=== PATIENT | male | born 1985 | race Caucasian/White ===

== ENCOUNTER 2016-12-23 | Outpatient (CLI) | payer BC, OTHER | END 2016-12-23 16:17 | disposition critical access hospital (66) | CPT/HCPCS: A0425; A0427 ==

== ENCOUNTER 2016-12-23 16:44 | Inpatient (IN) | payer OTHER, BC ==
[2016-12-23] MEDS ORDERED: ROCURONIUM 50 MG/5 ML VIAL IVP STA (16:52)
[2016-12-23] MEDS ORDERED: ROCURONIUM 50 MG/5 ML VIAL IVP ONE (16:54)
[2016-12-23] MEDS ORDERED: PROPOFOL 1000 MG/100 ML 100 ML IV STA (17:04)
[2016-12-23] MEDS ORDERED: PROPOFOL 1000 MG/100 ML 100 ML IV ONE (17:06)
[2016-12-23] MEDS ORDERED: SODIUM CHLORIDE 0.9% 1,000 ML IV ONE ×2 (17:06)
[2016-12-23] MEDS ORDERED: ETOMIDATE 40 MG/20 ML VIAL IVP STA (17:12)
[2016-12-23] MEDS ORDERED: HYDROmorphone 1 MG/ML SYRINGE ONE (17:31)
[2016-12-23] MEDS ORDERED: SODIUM CHLORIDE FLUSH 0.9% 10 ML SYRINGE IVP PRN (17:35)
[2016-12-23] MEDS: PROPOFOL 1000 MG/100 ML 100 ML IV SCH ×2 (17:36→21:14)
[2016-12-23] MEDS ORDERED: HYDROmorphone 1 MG/ML SYRINGE IVP STA (17:39)
[2016-12-23] MEDS ORDERED: ALBUTEROL NEB 2.5 MG/3 ML INH PRN (17:43)
[2016-12-23] MEDS: NS W/20 MEQ KCL 1,000 ML IV SCH (19:00)
[2016-12-23] MEDS ORDERED: TRACE ELEMENTS V CONC 1 ML VIAL IV SCH (19:00)
[2016-12-23] MEDS: CHLORHEXIDINE GLUCONATE 15 ML UDC PO SCH (20:41)
[2016-12-23] MEDS ORDERED: POTASSIUM PHOSPHATE 15 MMOL in SODIUM CHLORIDE 0.9% 250 ML IV ONE (21:17)
[2016-12-23] MEDS ORDERED: CALCIUM GLUCONATE 1,000 MG in SODIUM CHLORIDE 0.9% 50 ML IV ONE (21:17)
[2016-12-23] MEDS ORDERED: SODIUM CHLORIDE 0.9% 50 ML IV ONE (21:54)
[2016-12-23] MEDS ORDERED: SODIUM CHLORIDE 0.9% 250 ML IV ONE (21:54)
[2016-12-23] MEDS: POTASSIUM CHLOR 10 MEQ/100 ML 100 ML IV SCH ×2 (22:36→23:32)
[2016-12-23] MEDS: SODIUM CHLORIDE FLUSH 0.9% 10 ML SYRINGE IVP SCH (22:52)
[2016-12-24] MEDS: PROPOFOL 1000 MG/100 ML 100 ML IV SCH ×3 (00:13→06:41)
[2016-12-24] MEDS: POTASSIUM CHLOR 10 MEQ/100 ML 100 ML IV SCH ×2 (00:37→01:49)
[2016-12-24] MEDS: SODIUM CHLORIDE FLUSH 0.9% 10 ML SYRINGE IVP SCH ×3 (06:12→21:36)
[2016-12-24] MEDS: PANTOPRAZOLE 40 MG VIAL IVP SCH (06:12)
[2016-12-24] MEDS: NS W/20 MEQ KCL 1,000 ML IV SCH ×2 (06:44→16:11)
[2016-12-24] MEDS: ENOXAPARIN 40 MG/0.4 ML SYRINGE SUBQ SCH (08:25)
[2016-12-24] MEDS: CHLORHEXIDINE GLUCONATE 15 ML UDC PO SCH ×2 (08:26→21:26)
[2016-12-24] MEDS: KETOROLAC 15 MG/ML VIAL IVP PRN ×2 (09:17→20:21)
[2016-12-24] MEDS: ACETAMINOPHEN 1,000 MG/100 ML 100 ML IV SCH ×3 (09:44→21:45)
[2016-12-24] MEDS: ONDANSETRON 4 MG/2 ML VIAL IVP PRN ×3 (09:50→20:11)
[2016-12-24] MEDS: HYDROmorphone 1 MG/ML SYRINGE IVP PRN ×3 (10:14→21:36)
[2016-12-24] MEDS ORDERED: tiZANidine 4 MG TABLET PO PRN (10:16)
[2016-12-24] MEDS: OXcarbazepine 150 MG TABLET PO SCH ×2 (10:27→21:35)
[2016-12-24] MEDS: PREGABALIN 25 MG CAPSULE PO SCH ×4 (10:27→21:35)
[2016-12-24] MEDS: DRONABINOL 2.5 MG CAPSULE PO SCH ×4 (10:52→21:35)
[2016-12-24] MEDS ORDERED: HYDROmorphone 1 MG/ML SYRINGE IVP SCH (11:00)
[2016-12-24] MEDS: PROMETHAZINE INJ 12.5 MG in SODIUM CHLORIDE 0.9% 50 ML IV PRN ×2 (16:58→23:27)
[2016-12-24] MEDS ORDERED: POLYETHYLENE GLYCOL 3350 17 GM PACKET PO SCH (17:00)
[2016-12-24] MEDS: DOCUSATE SODIUM 100 MG CAPSULE PO SCH (17:52)
[2016-12-24] MEDS: SENNA 8.6 MG TABLET PO SCH (17:52)
[2016-12-24] MEDS: CYANOCOBALAMIN 500 MCG TABLET PO SCH (17:53)
[2016-12-24] MEDS: FOLIC ACID 1 MG TABLET PO SCH (17:53)
[2016-12-24] MEDS: tiZANidine 4 MG TABLET PO SCH (18:42)
[2016-12-24] MEDS ORDERED: tiZANidine 4 MG TABLET PO SCH (21:00)
[2016-12-25] MEDS: PREGABALIN 25 MG CAPSULE PO SCH ×4 (01:27→08:35)
[2016-12-25] MEDS: NS W/20 MEQ KCL 1,000 ML IV SCH (02:40)
[2016-12-25] MEDS: HYDROmorphone 1 MG/ML SYRINGE IVP PRN ×2 (04:05→08:12)
[2016-12-25] MEDS: ACETAMINOPHEN 1,000 MG/100 ML 100 ML IV SCH ×2 (04:05→09:57)
[2016-12-25] MEDS: PANTOPRAZOLE 40 MG VIAL IVP SCH (06:38)
[2016-12-25] MEDS: SODIUM CHLORIDE FLUSH 0.9% 10 ML SYRINGE IVP SCH (06:38)
[2016-12-25] MEDS: POTASSIUM CHLOR 10 MEQ/100 ML 100 ML IV SCH ×3 (06:38→09:52)
[2016-12-25] MEDS: KETOROLAC 15 MG/ML VIAL IVP PRN (07:35)
[2016-12-25] MEDS: ONDANSETRON 4 MG/2 ML VIAL IVP PRN (07:35)
[2016-12-25] MEDS: DOCUSATE SODIUM 100 MG CAPSULE PO SCH ×2 (08:13→09:26)
[2016-12-25] MEDS: ENOXAPARIN 40 MG/0.4 ML SYRINGE SUBQ SCH (08:13)
[2016-12-25] MEDS: SENNA 8.6 MG TABLET PO SCH ×2 (08:13→09:30)
[2016-12-25] MEDS: DRONABINOL 2.5 MG CAPSULE PO SCH (08:15)
[2016-12-25] MEDS: FOLIC ACID 1 MG TABLET PO SCH ×2 (08:15→09:26)
[2016-12-25] MEDS: OXcarbazepine 150 MG TABLET PO SCH (08:17)
[2016-12-25] MEDS: CYANOCOBALAMIN 500 MCG TABLET PO SCH ×2 (08:17→09:26)
[2016-12-25] MEDS: CHLORHEXIDINE GLUCONATE 15 ML UDC PO SCH (08:17)
[2016-12-25] MEDS: tiZANidine 4 MG TABLET PO SCH (08:17)
[2016-12-25] MEDS ORDERED: PHOSPHATIDYL SERINE PO SCH (09:00)
[2016-12-25] MEDS ORDERED: FOLIC ACID 1 MG TABLET PO SCH (09:00)
[2016-12-25] MEDS ORDERED: SACCHAROMYCES BOULARDII 250 MG CAPSULE PO SCH (09:00)
[2016-12-25] MEDS ORDERED: CYANOCOBALAMIN 500 MCG TABLET PO SCH (09:00)
[2016-12-25] MEDS ORDERED: PAPAYA ENZYME PO SCH (09:00)
[2016-12-25] MEDS ORDERED: CHOLECALCIFEROL 1,000 UNIT TABLET PO SCH (09:00)
[2016-12-25] MEDS ORDERED: CRANBERRY 500 MG PO SCH (09:00)
[2016-12-25] MEDS ORDERED: tiZANidine 4 MG TABLET PO SCH (15:00)
== END 2016-12-25 11:18 | disposition home or self-care (01) | DRG 917 ==
PROC: 5A1935Z Respiratory Ventilation, Less than 24 Consecutive Hours (ICD-10-PCS; principal; 2016-12-23)
DX: T42.4X1A Poisoning by benzodiazepines, accidental (unintentional), initial encounter (principal); G92 Toxic encephalopathy; J96.00 Acute respiratory failure, unspecified whether with hypoxia or hypercapnia; J93.9 Pneumothorax, unspecified; Z94.84 Stem cells transplant status; G72.89 Other specified myopathies; F32.9 Major depressive disorder, single episode, unspecified; T40.2X1A Poisoning by other opioids, accidental (unintentional), initial encounter; Y92.009 Unspecified place in unspecified non-institutional (private) residence as the place of occurrence of the external cause; L89.41 Pressure ulcer of contiguous site of back, buttock and hip, stage 1; F41.9 Anxiety disorder, unspecified; K59.00 Constipation, unspecified; R33.9 Retention of urine, unspecified; Z99.3 Dependence on wheelchair

== ENCOUNTER 2017-12-12 14:55 | Outpatient (CLI) | payer OTHER ==
--- NOTE | 2017-12-12 18:41 | XRAY Report ---
TWO VIEW CHEST: 12/12/2017 CLINICAL INDICATION: Pain. FINDINGS: Frontal and lateral views of the chest demonstrate a normal cardiac silhouette. The lungs are clear. No effusion or pneumothorax is present. Spinal stimulator hardware appears stable from 12/25/2016. IMPRESSION: NO EVIDENCE OF ACUTE CARDIOPULMONARY DISEASE. TD: 12/12/2017 18:40
== END 2017-12-12 14:56 | disposition home or self-care (01) ==
LOC: DI.S 14:55
PROVIDERS: ATTEND Physician Assistant
DX: R52 Pain, unspecified (principal); M94.0 Chondrocostal junction syndrome [Tietze]
CPT/HCPCS: 71046

== ENCOUNTER 2017-12-25 19:07 | Outpatient (CLI) | payer OTHER ==
[2017-12-25] MEDS ORDERED: IOPAMIDOL-300 100 ML VIAL ONE (19:35)
[2017-12-25] MEDS ORDERED: IOPAMIDOL-300 100 ML VIAL IVP ONE (19:56)
--- NOTE | 2017-12-26 15:25 | CT Report ---
EXAM: CT MAXILLOFACIAL WITH CONTRAST EXAM DATE: 12/25/2017 08:01 PM. CLINICAL HISTORY: CHRONIC NONINTRACTABLE HEADACHE. COMPARISONS: None. TECHNIQUE: Thin-section axial images were acquired of the face after administration of intravenous co ntrast. Post-processing: Coronal and sagittal reformats. Other: None. IV contrast: 80 cc Isovue 300. In accordance with CT protocol optimization, one or more of the following dose reduction techniques w ere utilized for this exam: automated exposure control, adjustment of mA and/or KV based on patient s ize, or use of iterative reconstructive technique. FINDINGS: Orbits:Symmetric and unremarkable. Soft Tissue: No abnormal inflammation or fluid collection. No soft tissue mass. The infratemporal fos sa and parapharyngeal spaces are unremarkable. Bones: No fracture or bone lesion. Temporomandibular Joints: The temporomandibular joints are symmetric and normally located. Sinuses: No mucosal thickening or fluid levels. Glands: The parotid and submandibular glands are unremarkable in their included portions.. Other: C1-C2 alignment anatomic. Neurostimulator seen in the cervical spinal canal. No abnormal postc ontrast enhancement. Nasopharyngeal soft tissues not enlarged. IMPRESSION: Negative maxillofacial CT with cervical spinal canal neurostimulator in place. [facility] Referring Provider Line: [phone] SITE ID: [id number]
== END 2017-12-25 19:08 | disposition home or self-care (01) ==
LOC: DI 19:07
PROVIDERS: ATTEND Internal Medicine
DX: R51 Headache (principal)
CPT/HCPCS: 70487; Q9967; 70486

== ENCOUNTER 2018-03-13 11:53 | Emergency (ER) | payer OTHER ==
--- NOTE | 2018-03-13 12:21 | ED Physician Documentation ---
PD HPI MALE - Stated complaint Stated Complaint: MALE - Chief complaint Chief Complaint: General - History obtained from History obtained from: Patient - History of Present Illness Timing - onset: How many days ago (few days of worsening rectal pain and tenderness.) Timing - details: Gradual onset Associated symptoms: Other (rectal pain) Similar symptoms before: Has not had sx before Recently seen: Not recently seen Review of Systems Constitutional: denies: Fever, Chills GI: denies: Abdominal Pain, Nausea, Vomiting, Constipation, Diarrhea Skin: denies: Laceration (s) PD PAST MEDICAL HISTORY - Past Medical History Cardiovascular: None Respiratory: None Neuro: Tremors, Other Endocrine/Autoimmune: None GI: GERD, Other : Incontinence HEENT: None Psych: None Musculoskeletal: Other Derm: None - Past Surgical History Past Surgical History: Yes Ortho: Arthroscopic surgery - Present Medications Home Medications: Ambulatory Orders Medication Instructions Recorded Confirmed Cholecalciferol (Vitamin D3) 5,000 units PO DAILY 04/03/14 12/24/16 [Vitamin D3] OXcarbazepine [Trileptal] 300 mg PO BID 04/03/14 12/24/16 Ondansetron [Zofran Odt] 4 - 8 mg PO .BID-QID 04/03/14 12/24/16 Pregabalin [Lyrica] 75 mg PO Q4HR 04/03/14 12/24/16 Tizanidine HCl [Zanaflex] 4 mg PO DAILY 04/03/14 12/24/16 Cranberry 500 mg PO DAILY 09/15/15 12/24/16 Docusate Sodium 100Mg Capsule 200 mg PO DAILY 09/15/15 12/24/16 [Colace 100Mg Capsule] Dronabinol [Marinol] 5 mg PO QID 09/15/15 12/24/16 Naltrexone HCl 4.5 mg PO DAILY 09/15/15 12/24/16 Senna [Senokot] 8.6 mg PO DAILY 09/15/15 12/24/16 Cyanocobalamin (Vitamin B-12) 1,000 mcg PO DAILY 12/24/16 12/24/16 [Vitamin B-12] Folic Acid 0.8 mg PO DAILY 12/24/16 12/24/16 Papaya [Papaya Enzyme] 1 tab PO DAILY 12/24/16 12/24/16 Phosphatidyl Serine 100 mg PO DAILY 12/24/16 12/24/16 [Phosphatidylserine] Polyethylene Glycol 3350 [Miralax] 17 gm PO .Q1-2DAYS 12/24/16 12/24/16 Saccharomyces Boulardii [Florastor] 250 mg PO DAILY 12/24/16 12/24/16 Tizanidine HCl [Zanaflex] 4 mg PO DAILY@1500 12/24/16 12/24/16 Tizanidine HCl [Zanaflex] 6 mg PO QPM 12/24/16 12/24/16 Hydrocortisone Acetate [Anucort-Hc] 25 mg RC DAILY #5 supp.rect 03/13/18 - Allergies Allergies/Adverse Reactions: Allergies Allergy/AdvReac Type Severity Reaction Status Date / Time ampicillin AdvReac Unknown Verified 12/23/16 16:48 ciprofloxacin [From Cipro] AdvReac Unknown Verified 12/23/16 16:48 - Social History Does the pt smoke?: No Smoking Status: Never smoker Does the pt drink ETOH?: No Does the pt have substance abuse?: No - Immunizations Immunizations are current?: Yes - POLST Patient has POLST: Yes PD ED PE NORMAL - Vitals Vital signs reviewed: Yes - General General: Alert and oriented X 3, No acute distress, Well developed/nourished - Abdomen Abdomen: Soft, Non tender - Rectal Rectal: Other (external hemorrhoid with thrombosis and marked tenderness. No surrounding signs of infection. ) - Back Back: No CVA TTP - Derm Derm: Normal color, Warm and dry Results - Vitals Vitals: Vital Signs - 24 hr 03/13/18 03/13/18 11:59 13:40 Temperature 36.9 C Heart Rate 90 74 Respiratory 16 16 Rate Blood Pressure 109/65 117/60 O2 Saturation 96 96 Oxygen O2 Source Room air Procedures - General procedure General procedure: Thrombosed hemorrhoid - cleansed with NS, local anesth with lido 1% with epi, then used #11 scalpel to open the hemorrhoid and extract clot, until the hemorrhoid decompressed. Patient tolerated okay. PD MEDICAL DECISION MAKING - ED course Complexity details: considered differential, d/w patient Departure - Departure Disposition: 01 Home, Self Care Clinical Impression: Thrombosed external hemorrhoid Condition: Stable Record reviewed to determine appropriate education?: Yes Instructions: ED Hemorrhoids Follow-Up: KE ESPOSITO [Primary Care Provider] - Prescriptions: Hydrocortisone Acetate [Anucort-Hc] 25 mg RC DAILY #5 supp.rect Comments: Cleanse the area which is soap and water time or 2 a day. Normal bathing is okay. Use the steroid suppository daily for 5 more days for the hemorrhoid part. The thrombosed portion is improved. Recheck if not better over the next several days. Discharge Date/Time: 03/13/18 13:40
[2018-03-13] MEDS ORDERED: KETOROLAC 30 MG/ML VIAL IM STA (12:34)
[2018-03-13] MEDS ORDERED: LIDOCAINE MPF 1%-EPI 1:200000 30 ML VIAL SUBQ STA (12:44)
[2018-03-13] MEDS ORDERED: HYDROCORTISONE 25 MG SUPPOSITORY PR STA (13:04)
[2018-03-13 13:42] VITALS: BP 117/60
== END 2018-03-13 13:40 | disposition home or self-care (01) ==
LOC: ED 11:53
DX: K64.5 Perianal venous thrombosis (principal); R25.1 Tremor, unspecified; K21.9 Gastro-esophageal reflux disease without esophagitis
CPT/HCPCS: 96372; 99283; J3490

== ENCOUNTER 2018-04-25 03:48 | Emergency (ER) | payer OTHER ==
--- NOTE | 2018-04-25 04:09 | ED Physician Documentation ---
PD HPI MHE - Stated complaint Stated Complaint: SI - Chief complaint Chief Complaint: MHE - History obtained from History obtained from: Patient - History of Present Illness Primary symptom: Suicidal ideation Timing - onset: Today Pain level now: 0 Contributing factors: Family, Other (underlying illness causing him to be confined to wheelchair) Recently seen: Not recently seen - Additional information Additional information: patient has CIDP (chronic inflammatory demyelating polyneuropathy), and is thus confined to wheelchair. he recently went through divorce, and tonight, he says his parent made hurtful comments to him. he thus left the parents house (he is temporarily staying there while work is being done on his condominium), and subsequently called a friend and expressed thoughts of killing himself. friend then called police who located patient and brought him to ED. Patient strongly denies intent to self-harm on my HPI/ROS. He readily admits to being depressed, but says he has no intention of killing himself or hurting others. he also says the parent already contacted him and apologized, and he feels he can go back to parents home and feels safe doing so. Review of Systems Constitutional: denies: Fever Throat: reports: Sore throat Cardiac: reports: Reviewed and negative Respiratory: reports: Reviewed and negative GI: reports: Reviewed and negative Neurologic: reports: Focal weakness (BLE due to underlying illness). denies: Confused, Altered mental status, Headache Psychiatric: reports: Depressed. denies: Suicidal (despite suicidal statements to friend earlier tonight, denies true intent), Homicidal PD PAST MEDICAL HISTORY - Past Medical History Cardiovascular: None Respiratory: None Endocrine/Autoimmune: None GI: GERD, Other : Incontinence HEENT: None Psych: None Musculoskeletal: Other Derm: None - Past Surgical History Past Surgical History: Yes Ortho: Arthroscopic surgery - Present Medications Home Medications: Ambulatory Orders Medication Instructions Recorded Confirmed Cholecalciferol (Vitamin D3) 5,000 units PO DAILY 04/03/14 12/24/16 [Vitamin D3] OXcarbazepine [Trileptal] 300 mg PO BID 04/03/14 12/24/16 Ondansetron [Zofran Odt] 4 - 8 mg PO .BID-QID 04/03/14 12/24/16 Pregabalin [Lyrica] 75 mg PO Q4HR 04/03/14 12/24/16 Tizanidine HCl [Zanaflex] 4 mg PO DAILY 04/03/14 12/24/16 Cranberry 500 mg PO DAILY 09/15/15 12/24/16 Docusate Sodium 100Mg Capsule 200 mg PO DAILY 09/15/15 12/24/16 [Colace 100Mg Capsule] Dronabinol [Marinol] 5 mg PO QID 09/15/15 12/24/16 Naltrexone HCl 4.5 mg PO DAILY 09/15/15 12/24/16 Senna [Senokot] 8.6 mg PO DAILY 09/15/15 12/24/16 Cyanocobalamin (Vitamin B-12) 1,000 mcg PO DAILY 12/24/16 12/24/16 [Vitamin B-12] Folic Acid 0.8 mg PO DAILY 12/24/16 12/24/16 Papaya [Papaya Enzyme] 1 tab PO DAILY 12/24/16 12/24/16 Phosphatidyl Serine 100 mg PO DAILY 12/24/16 12/24/16 [Phosphatidylserine] Polyethylene Glycol 3350 [Miralax] 17 gm PO .Q1-2DAYS 12/24/16 12/24/16 Saccharomyces Boulardii [Florastor] 250 mg PO DAILY 12/24/16 12/24/16 Tizanidine HCl [Zanaflex] 4 mg PO DAILY@1500 12/24/16 12/24/16 Tizanidine HCl [Zanaflex] 6 mg PO QPM 12/24/16 12/24/16 Hydrocortisone Acetate [Anucort-Hc] 25 mg RC DAILY #5 supp.rect 03/13/18 - Allergies Allergies/Adverse Reactions: Allergies Allergy/AdvReac Type Severity Reaction Status Date / Time ampicillin AdvReac Unknown Verified 04/25/18 04:02 ciprofloxacin [From Cipro] AdvReac Unknown Verified 04/25/18 04:02 - Social History Does the pt smoke?: No Smoking Status: Never smoker Does the pt drink ETOH?: No Does the pt have substance abuse?: No - Immunizations Immunizations are current?: Yes - POLST Patient has POLST: Yes PD ED PE NORMAL - Vitals Vital signs reviewed: Yes - General General: Alert and oriented X 3, No acute distress, Well developed/nourished, Other (returning from bathroom when I walk in room; he is goodwin and adept at transferring self from wheelchair to bed without assistancen he does this using his body and arms (has to move his legs by maneuvering them with his arms and hands)) - Cardiac Cardiac: RRR, No murmur - Respiratory Respiratory: No respiratory distress, Clear bilaterally Results - Vitals Vitals: Oxygen O2 Source Room air - Labs Labs: Microbiology 04/25/18 05:26 Group A Strep Throat Culture - Final Throat Beta Hemolytic Strep Group A Laboratory Tests 04/25/18 04/25/18 04/25/18 04:52 04:52 04:59 WBC 7.0 RBC 5.29 Hgb 16.5 Hct 49.1 MCV 92.9 MCH 31.2 H MCHC 33.6 RDW 14.2 Plt Count 238 MPV 8.6 Neut # (Auto) 5.2 Lymph # (Auto) 1.1 L Barren # (Auto) 0.6 Eos # (Auto) 0.1 Baso # (Auto) 0.1 Absolute Nucleated RBC 0.01 Nucleated RBC % 0.1 Sodium 138 Potassium 3.8 Chloride 101 Carbon Dioxide 28 Anion Gap 9.0 BUN 8 Creatinine 0.6 Estimated GFR (MDRD) 154 Glucose 83 Calcium 9.5 Total Bilirubin 0.5 AST 16 ALT 16 Alkaline Phosphatase 49 Total Protein 8.0 Albumin 4.2 Globulin 3.8 Albumin/Globulin Ratio 1.1 Lipase 37 Urine Color YELLOW Urine Clarity CLEAR Urine pH 6.0 Ur Specific [place] 1.025 Urine Protein NEGATIVE Urine Glucose (UA) NEGATIVE Urine Ketones NEGATIVE Urine Occult Blood NEGATIVE Urine Nitrite NEGATIVE Urine Bilirubin NEGATIVE Urine Urobilinogen 0.2 (NORMAL) Ur Leukocyte Esterase NEGATIVE Ur Microscopic Review NOT INDICATED Urine Culture Comments NOT INDICATED Urine Opiates Screen Ur Oxycodone Screen Urine Methadone Screen Ur Propoxyphene Screen Ur Barbiturates Screen Ur Tricyclics Screen Ur Phencyclidine Scrn Ur Amphetamine Screen U Methamphetamines Scrn U Benzodiazepines Scrn Urine Cocaine Screen U Cannabinoids Screen Group A Strep Rapid 04/25/18 04/25/18 04:59 05:26 WBC RBC Hgb Hct MCV MCH MCHC RDW Plt Count MPV Neut # (Auto) Lymph # (Auto) Barren # (Auto) Eos # (Auto) Baso # (Auto) Absolute Nucleated RBC Nucleated RBC % Sodium Potassium Chloride Carbon Dioxide Anion Gap BUN Creatinine Estimated GFR (MDRD) Glucose Calcium Total Bilirubin AST ALT Alkaline Phosphatase Total Protein Albumin Globulin Albumin/Globulin Ratio Lipase Urine Color Urine Clarity Urine pH Ur Specific [place] Urine Protein Urine Glucose (UA) Urine Ketones Urine Occult Blood Urine Nitrite Urine Bilirubin Urine Urobilinogen Ur Leukocyte Esterase Ur Microscopic Review Urine Culture Comments Urine Opiates Screen NEGATIVE Ur Oxycodone Screen NEGATIVE Urine Methadone Screen NEGATIVE Ur Propoxyphene Screen NEGATIVE Ur Barbiturates Screen NEGATIVE Ur Tricyclics Screen NEGATIVE Ur Phencyclidine Scrn NEGATIVE Ur Amphetamine Screen NEGATIVE U Methamphetamines Scrn NEGATIVE U Benzodiazepines Scrn NEGATIVE Urine Cocaine Screen NEGATIVE U Cannabinoids Screen POSITIVE H Group A Strep Rapid Negative PD MEDICAL DECISION MAKING - ED course Complexity details: reviewed results, re-evaluated patient, considered differential, d/w patient ED course: patient makes earnest requests to be discharged, says he is not suicidal and made statements earlier tonight out of frustration and not with true intent. he feels safe returning to [facility] house tonight, and will arcenio, 911 any time he feels unsafe. strep swab performed with negative result. this was due to c/o sore throat on ROS. - Sepsis Event Vital Signs: Oxygen O2 Source Room air Departure - Departure Disposition: Home, Self Care Clinical Impression: Depression, Pharyngitis Condition: Good Instructions: ED Depression, ED Pharyngitis Viral Follow-Up: KE ESPOSITO [Primary Care Provider] - Discharge Date/Time: 04/25/18 06:27
[2018-04-25 05:15] LABS: MUDS CUTOFF CONCENTRATIONS CUTOFF CONC BELOW:
[2018-04-25] MEDS ORDERED: OXcarbazepine 150 MG TABLET PO STA (05:27)
[2018-04-25 05:29] LABS: BASOPHILS # (AUTO) 0.1 10^3/uL (0.0-0.1); EOSINOPHILS # (AUTO) 0.1 10^3/uL (0.0-0.7); EOSINOPHILS % (AUTO) 1.2 %; HGB - HEMOGLOBIN 16.5 g/dL (14.0-18.0); LYMPHOCYTES # (AUTO) 1.1 10^3/uL (1.5-3.5); LYMPHOCYTES % (AUTO) 15.7 %; MEAN CORPUSCULAR HEMOGLOBIN 31.2 pg (27.0-31.0); MEAN CORPUSCULAR HGB CONC 33.6 g/dL (32.0-36.0); MEAN CORPUSCULAR VOLUME 92.9 fL (80.0-94.0); MEAN PLATELET VOLUME 8.6 fL (7.4-11.4); MONOCYTES # (AUTO) 0.6 10^3/uL (0.0-1.0); MONOCYTES % (AUTO) 7.9 %; NEUTROPHILS # (AUTO) 5.2 10^3/uL (1.5-6.6); NEUTROPHILS % (AUTO) 74.2 %; PLT - PLATELET COUNT 238 10^3/uL (130-450); RED BLOOD COUNT 5.29 10^6/uL (4.70-6.10); RED CELL DISTRIBUTION WIDTH 14.2 % (12.0-15.0)
[2018-04-25 05:33] LABS: BILIRUBIN,URINE NEGATIVE (NEGATIVE); GLUCOSE, URINE (UA) NEGATIVE (NEGATIVE); KETONES,URINE (UA) NEGATIVE (NEGATIVE); LEUKOCYTE ESTERASE, URINE NEGATIVE (NEGATIVE); NITRITE,URINE NEGATIVE (NEGATIVE); OCCULT BLOOD,URINE NEGATIVE (NEGATIVE); PROTEIN,URINE NEGATIVE (NEGATIVE); UROBILINOGEN,URINE 0.2 (NORMAL) E.U./dL (NORMAL)
[2018-04-25] MEDS ORDERED: ACETAMINOPHEN 325 MG TABLET PO STA (05:39)
[2018-04-25] MEDS ORDERED: tiZANidine 4 MG TABLET PO STA (05:39)
[2018-04-25] MEDS ORDERED: DEXAMETHASONE 10 MG/ML VIAL PO STA (05:39)
[2018-04-25] MEDS ORDERED: PREGABALIN 50 MG CAPSULE PO STA (05:39)
[2018-04-25 05:41] LABS: CLARITY,URINE CLEAR (CLEAR)
[2018-04-25 05:41] LABS: ALBUMIN 4.2 g/dL (3.2-5.5); ALBUMIN/GLOBULIN RATIO 1.1 (1.0-2.2); BILIRUBIN,TOTAL 0.5 mg/dL (0.2-1.0); CALCIUM 9.5 mg/dL (8.5-10.3); CREATININE 0.6 mg/dL (0.6-1.2)
[2018-04-25 05:54] LABS: AMPHETAMINE SCREEN,URINE NEGATIVE (NEGATIVE); BENZODIAZEPINES SCREEN, URINE NEGATIVE (NEGATIVE); COCAINE SCREEN URINE NEGATIVE (NEGATIVE); METHADONE SCREEN, URINE NEGATIVE (NEGATIVE); METHAMPHETAMINES SCREEN, URINE NEGATIVE (NEGATIVE); OPIATE SCREEN, URINE NEGATIVE (NEGATIVE); OXYCODONE SCREEN, URINE NEGATIVE (NEGATIVE); PROPOXYPHENE SCREEN, URINE NEGATIVE (NEGATIVE); TRICYCLIC ANTIDEPRESSANT,URINE NEGATIVE (NEGATIVE)
[2018-04-25] MEDS ORDERED: ONDANSETRON ODT 4 MG TABLET TL STA ×2 (05:57→06:01)
[2018-04-25] MEDS ORDERED: PREGABALIN 25 MG CAPSULE PO ONE (06:00)
[2018-04-25 06:28] VITALS: BP 117/64
== END 2018-04-25 06:27 | disposition home or self-care (01) ==
LOC: ED 03:48
DX: F32.9 Major depressive disorder, single episode, unspecified (principal); R45.851 Suicidal ideations; J02.9 Acute pharyngitis, unspecified; G61.81 Chronic inflammatory demyelinating polyneuritis; Z99.3 Dependence on wheelchair; K21.9 Gastro-esophageal reflux disease without esophagitis
CPT/HCPCS: 36415; 80053; 80306; 81003; 83690; 85025; 87070; 87430; 99283; A9270; Q0162; 81001; 87086

== ENCOUNTER 2018-10-02 13:04 | Outpatient (CLI) | payer OTHER ==
[~2018-10-02 13:04] MED LIST: IOPAMIDOL-300 100 ML VIAL ONE
[2018-10-02] MEDS ORDERED: IOVERSOL 320 100 ML VIAL IVP ONE ×2 (13:11→19:08)
--- NOTE | 2018-10-02 23:48 | CT Report ---
Reason: RIGHT PERIORBITAL PAIN Procedure Date: 10/02/2018 Accession Number: [id number] / [id number] Procedure: CT - Head W/WO CPT Code: FULL RESULT: EXAM: CT HEAD WITHOUT AND WITH IV CONTRAST EXAM DATE: 10/02/2018 01:26 PM. CLINICAL HISTORY: Right periorbital pain. COMPARISON: SINUSES 12/25/2017 7:47 PM HEAD W/O 09/10/2016 4:51 PM. TECHNIQUE: Multiaxial CT images were obtained from the foramen magnum to the vertex. Reformats: Sagittal and coronal. IV contrast: Without and with IV contrast. In accordance with CT protocol optimization, one or more of the following dose reduction techniques were utilized for this exam: automated exposure control, adjustment of mA and/or KV based on patient size, or use of iterative reconstructive technique. FINDINGS: Parenchyma: No intraparenchymal hemorrhage. No evidence of mass, midline shift, or CT findings of infarction. Hare-white differentiation is distinct. No abnormal enhancement. Extraaxial Spaces: Normal for age. No subdural or epidural collections identified. Ventricles: Normal in size and position. Sinuses and Orbits: Imaged paranasal sinuses, orbits, and mastoids show no significant abnormality. Bones: No evidence of fracture or calvarial defect. Other: No vascular thrombosis seen. IMPRESSION: Normal head CT without and with IV contrast. [facility]
== END 2018-10-02 13:05 | disposition home or self-care (01) ==
LOC: DI 13:04
PROVIDERS: ATTEND Specialist
DX: G50.1 Atypical facial pain (principal); H57.11 Ocular pain, right eye
CPT/HCPCS: 70470; Q9967

== ENCOUNTER 2018-11-21 13:01 | Outpatient (CLI) | payer OTHER ==
--- NOTE | 2018-11-21 14:41 | Ultrasound Report ---
Reason: PARAPLEGIA, NEUROGENIC BLADDER,PARAPLEGIA Procedure Date: 11/21/2018 Accession Number: [id number] / [id number] Procedure: US - Retroperitoneal CPT Code: FULL RESULT: EXAM: RENAL ULTRASOUND EXAM DATE: 11/21/2018 02:00 PM. CLINICAL HISTORY: PARAPLEGIA, NEUROGENIC Bladder, paraplegia. COMPARISON: None. TECHNIQUE: Real-time scanning was performed with static images obtained. FINDINGS: Right Kidney: 9.6 x 5.5 x 5 cm. Normal echotexture with no stones, contour-deforming masses, or hydronephrosis. Left Kidney: 11.5 x 5.1 x 5.9 cm. Normal echotexture with no stones, contour-deforming masses, or hydronephrosis. Simple cyst 2.5 x 1.6 x 1.4 Bladder: Bilateral jets seen. The prevoid bladder volume was 119 cc. The postvoid bladder volume was 7 cc. Other: None. IMPRESSION: No evidence of renal obstruction, stones, or solid masses. [facility]
--- NOTE | 2018-11-21 15:56 | DEXA Report ---
Reason: SPINAL CORD STIMULATOR, LEFT FOREARM FX Procedure Date: 11/21/2018 Accession Number: [id number] / [id number] Procedure: DEX - Dexa Forearm CPT Code: FULL RESULT: EXAM: Dexa Spine and/or Hip, Dexa Forearm DATE: 11/21/2018 2:35 PM CLINICAL HISTORY: PARAPLEGIA, NEUROGENIC BLADDER,PARAPLEGIA TECHNIQUE: Dual energy x-ray absorptiometry (DXA) was performed on a [employer] System. Regions measured are the AP Spine, femoral neck, and if needed forearm. COMPARISON: None. In accordance with the International Society for Clinical Densitometry (ISCD) guidelines, data from previous exams may be reanalyzed using current recommendations and techniques. This is done to allow a more accurate basis for comparison with the current study. FINDINGS: The data for the hip is as follows: BMD (g/cm/cm) T-SCORE Z-SCORE REGION Neck 0.776 -2.3 -1.9 TOTAL 0.687 -2.9 -2.5 NOTE: The femoral neck or total proximal femur, whichever is lowest, is used for classification. The data for the left forearm is as follows: BMD (g/cm/cm) T-SCORE Z-SCORE REGION 1/3 1.013 0.2 0.2 NOTE: The 33% radius of the nondominant forearm is used for classification. IMPRESSION: THE WHO CLASSIFICATION BASED ON THE INTERNATIONAL REFERENCE STANDARD IS OSTEOPOROSIS. THE FRACTURE RISK IS HIGH. RECOMMENDATION: Patients with diagnosis of osteoporosis or osteopenia should have regular bone mineral density assessment. For those eligible for Medicare, routine testing is allowed once every 2 years. Testing frequency can be increased for patients who have rapidly progressing disease or for those who are receiving medical therapy to restore bone mass. COMMENT: World Health Organization (WHO) definitions for osteoporosis and osteopenia: NORMAL BMD: T-score at -1.0 or higher, fracture risk is low OSTEOPENIA BMD: T-score between -1.0 and -2.5, fracture risk is increased. OSTEOPOROSIS BMD: T-score at -2.5 or lower, fracture risk is high. National Osteoporosis Foundation recommends: 1. Obtain adequate dietary calcium (at least 1200 mg per day) and vitamin D (400-800 international units per day). 2. Participate, as appropriate, in regular weightbearing and muscle-strengthening exercise. 3. Avoid tobacco use and reduce alcohol and caffeine intake. 4. For more detailed information see the website at www.NOF.org.
--- NOTE | 2018-11-21 15:56 | DEXA Report ---
Reason: PARAPLEGIA, NEUROGENIC BLADDER,PARAPLEGIA Procedure Date: 11/21/2018 Accession Number: [id number] / [id number] Procedure: DEX - Dexa Spine and/or Hip CPT Code: FULL RESULT: EXAM: Dexa Spine and/or Hip, Dexa Forearm DATE: 11/21/2018 2:35 PM CLINICAL HISTORY: PARAPLEGIA, NEUROGENIC BLADDER,PARAPLEGIA TECHNIQUE: Dual energy x-ray absorptiometry (DXA) was performed on a [employer] System. Regions measured are the AP Spine, femoral neck, and if needed forearm. COMPARISON: None. In accordance with the International Society for Clinical Densitometry (ISCD) guidelines, data from previous exams may be reanalyzed using current recommendations and techniques. This is done to allow a more accurate basis for comparison with the current study. FINDINGS: The data for the hip is as follows: BMD (g/cm/cm) T-SCORE Z-SCORE REGION Neck 0.776 -2.3 -1.9 TOTAL 0.687 -2.9 -2.5 NOTE: The femoral neck or total proximal femur, whichever is lowest, is used for classification. The data for the left forearm is as follows: BMD (g/cm/cm) T-SCORE Z-SCORE REGION 1/3 1.013 0.2 0.2 NOTE: The 33% radius of the nondominant forearm is used for classification. IMPRESSION: THE WHO CLASSIFICATION BASED ON THE INTERNATIONAL REFERENCE STANDARD IS OSTEOPOROSIS. THE FRACTURE RISK IS HIGH. RECOMMENDATION: Patients with diagnosis of osteoporosis or osteopenia should have regular bone mineral density assessment. For those eligible for Medicare, routine testing is allowed once every 2 years. Testing frequency can be increased for patients who have rapidly progressing disease or for those who are receiving medical therapy to restore bone mass. COMMENT: World Health Organization (WHO) definitions for osteoporosis and osteopenia: NORMAL BMD: T-score at -1.0 or higher, fracture risk is low OSTEOPENIA BMD: T-score between -1.0 and -2.5, fracture risk is increased. OSTEOPOROSIS BMD: T-score at -2.5 or lower, fracture risk is high. National Osteoporosis Foundation recommends: 1. Obtain adequate dietary calcium (at least 1200 mg per day) and vitamin D (400-800 international units per day). 2. Participate, as appropriate, in regular weightbearing and muscle-strengthening exercise. 3. Avoid tobacco use and reduce alcohol and caffeine intake. 4. For more detailed information see the website at www.NOF.org.
== END 2018-11-21 13:02 | disposition home or self-care (01) ==
LOC: DI 13:01
PROVIDERS: ATTEND Physical Medicine & Rehabilitation
DX: M81.0 Age-related osteoporosis without current pathological fracture (principal); G82.20 Paraplegia, unspecified; N31.9 Neuromuscular dysfunction of bladder, unspecified
CPT/HCPCS: 76770; 77080; 77081

== ENCOUNTER 2019-02-25 23:38 | Outpatient (CLI) | payer OTHER | END 2019-02-25 23:39 | disposition critical access hospital (66) | LOC: EMS 23:38 | PROVIDERS: ATTEND Surgery | DX: T42.4X2A Poisoning by benzodiazepines, intentional self-harm, initial encounter (principal); T40.2X2A Poisoning by other opioids, intentional self-harm, initial encounter; Y92.003 Bedroom of unspecified non-institutional (private) residence as the place of occurrence of the external cause; R40.20 Unspecified coma; R11.0 Nausea | CPT/HCPCS: A0425; A0427 ==

== ENCOUNTER 2019-02-26 00:07 | Emergency (ER) | payer OTHER ==
--- NOTE | 2019-02-26 01:05 | ED Physician Documentation ---
PD HPI OVERDOSE - Stated complaint Stated Complaint: SI/OD - Chief complaint Chief Complaint: MHE - History obtained from History obtained from: Family (mother (in ED at bedside)), EMS - History of Present Illness Timing - onset: Today Subtance(s) ingested: Multiple Associated symptoms: Decreased responsiveness, Altered mental status Contributing factors: Depresssed Treatment ANTENNA INSTALLER: Narcan - Additional information Additional information: BIBA. Patient cannot contribute to HPI/ROS due to AMS. Mother is in ED at bedside and she provides HPI. Patient lives in [place] and returned from a trip to [place] 3 days ago. Tonight he sent a text to his mother indicating he didn't want to live any more. He indicated where he was and thus mother drove to meet him; she then drove him to his condo in [place] but noticed patient was rapidly becoming increasingly drowsy with decreased responsiveness and slowing respirations and thus she called 911. She says that he indicated to her that he had intentionally overdosed on oxycodone and benzodiazepine (both his rx). BIBA, given narcan and zofran en route with improvement in mental status. Review of Systems Unable to obtain: AMS PD PAST MEDICAL HISTORY - Past Medical History Past Medical History: Yes Cardiovascular: None Respiratory: None Endocrine/Autoimmune: None GI: GERD, Other : Incontinence HEENT: None Psych: Depression Musculoskeletal: Other Derm: None - Past Surgical History Past Surgical History: Yes Ortho: Arthroscopic surgery - Present Medications Home Medications: Ambulatory Orders Medication Instructions Recorded Confirmed Cholecalciferol (Vitamin D3) 5,000 units PO DAILY 04/03/14 12/24/16 [Vitamin D3] OXcarbazepine [Trileptal] 300 mg PO BID 04/03/14 12/24/16 Ondansetron [Zofran Odt] 4 - 8 mg PO .BID-QID 04/03/14 12/24/16 Pregabalin [Lyrica] 75 mg PO Q4HR 04/03/14 12/24/16 Tizanidine HCl [Zanaflex] 4 mg PO DAILY 04/03/14 12/24/16 Cranberry 500 mg PO DAILY 09/15/15 12/24/16 Docusate Sodium 100Mg Capsule 200 mg PO DAILY 09/15/15 12/24/16 [Colace 100Mg Capsule] Dronabinol [Marinol] 5 mg PO QID 09/15/15 12/24/16 Naltrexone HCl 4.5 mg PO DAILY 09/15/15 12/24/16 Senna [Senokot] 8.6 mg PO DAILY 09/15/15 12/24/16 Cyanocobalamin (Vitamin B-12) 1,000 mcg PO DAILY 12/24/16 12/24/16 [Vitamin B-12] Folic Acid 0.8 mg PO DAILY 12/24/16 12/24/16 Papaya [Papaya Enzyme] 1 tab PO DAILY 12/24/16 12/24/16 Phosphatidyl Serine 100 mg PO DAILY 12/24/16 12/24/16 [Phosphatidylserine] Polyethylene Glycol 3350 [Miralax] 17 gm PO .Q1-2DAYS 12/24/16 12/24/16 Saccharomyces Boulardii [Florastor] 250 mg PO DAILY 12/24/16 12/24/16 Tizanidine HCl [Zanaflex] 4 mg PO DAILY@1500 12/24/16 12/24/16 Tizanidine HCl [Zanaflex] 6 mg PO QPM 12/24/16 12/24/16 Hydrocortisone Acetate [Anucort-Hc] 25 mg RC DAILY #5 supp.rect 03/13/18 - Allergies Allergies/Adverse Reactions: Allergies Allergy/AdvReac Type Severity Reaction Status Date / Time ampicillin AdvReac Unknown Verified 02/26/19 00:17 ciprofloxacin [From Cipro] AdvReac Unknown Verified 02/26/19 00:17 - Social History Does the pt smoke?: No Smoking Status: Never smoker Does the pt drink ETOH?: No Does the pt have substance abuse?: No - Immunizations Immunizations are current?: Yes - POLST Patient has POLST: Yes PD ED PE NORMAL - Vitals Vital signs reviewed: Yes - General General: No acute distress, Well developed/nourished, Other (lethargic; briefly awakens with repeated verbal and gentle tactile stimulus but falls asleep rapidly. Is able to tell me his name but markedly slurred speech) - HEENT HEENT: PERRL, EOMI, Moist mucous membranes - Cardiac Cardiac: RRR, No murmur - Respiratory Respiratory: No respiratory distress, Clear bilaterally - Abdomen Abdomen: Soft, Non distended - Derm Derm: Normal color, Warm and dry - Neuro Eye Opening: To Voice Motor: Localizes to Pain Verbal: Oriented GCS Score: 13 Results - Vitals Vitals: Vital Signs - 24 hr 02/26/19 02/26/19 09:00 13:41 Heart Rate 100 128 H Respiratory 16 14 Rate Blood Pressure 131/94 H 112/74 O2 Saturation 98 Oxygen O2 Source Room air - Labs Labs: Laboratory Tests 02/26/19 02/26/19 02/26/19 01:40 01:40 02:00 WBC 3.9 L RBC 4.70 Hgb 14.7 Hct 43.6 MCV 92.7 MCH 31.2 H MCHC 33.7 RDW 14.9 Plt Count 174 MPV 8.5 Neut # (Auto) 1.6 Lymph # (Auto) 1.5 [place] # (Auto) 0.4 Eos # (Auto) 0.3 Baso # (Auto) 0.1 Absolute Nucleated RBC 0.00 Nucleated RBC % 0.1 Sodium 139 Potassium 3.5 Chloride 101 Carbon Dioxide 30 Anion Gap 8.0 BUN 16 Creatinine 0.9 Estimated GFR (MDRD) 97 Glucose 93 Calcium 9.0 Urine Color YELLOW Urine Clarity CLEAR Urine pH 7.0 Ur Specific [place] 1.010 Urine Protein NEGATIVE Urine Glucose (UA) NEGATIVE Urine Ketones NEGATIVE Urine Occult Blood NEGATIVE Urine Nitrite NEGATIVE Urine Bilirubin NEGATIVE Urine Urobilinogen 0.2 (NORMAL) Ur Leukocyte Esterase NEGATIVE Ur Microscopic Review NOT INDICATED Urine Culture Comments NOT INDICATED Salicylates < 6.0 Urine Opiates Screen NEGATIVE Ur Oxycodone Screen POSITIVE H Urine Methadone Screen NEGATIVE Ur Propoxyphene Screen NEGATIVE Acetaminophen 10 Ur Barbiturates Screen NEGATIVE Ur Tricyclics Screen NEGATIVE Ur Phencyclidine Scrn NEGATIVE Ur Amphetamine Screen NEGATIVE U Methamphetamines Scrn NEGATIVE U Benzodiazepines Scrn POSITIVE H Urine Cocaine Screen NEGATIVE U Cannabinoids Screen POSITIVE H Ethyl Alcohol < 5.0 PD MEDICAL DECISION MAKING - ED course Complexity details: reviewed old records, reviewed results, re-evaluated patient, considered differential, d/w family ED course: Held in ED overnight for remainder of my shift pending SW consult in AM. He gradually but steadily became increasingly responsive during my shift and at end of my shift was awake and eating breakfast. Departure - Departure Disposition: 01 Home, Self Care Clinical Impression: Medication overdose Condition: Stable Instructions: ED Depression, ED Overdose Intentional Follow-Up: KE ESPOSITO [Primary Care Provider] - Comments: Drink plenty of fluids. You can use liquid antacid, such as Maalox or Mylanta if you develop recurrent epigastric discomfort. Follow-up for outpatient counseling as planned. Return to the emergency department if you are feeling increasingly depressed or suicidal, or otherwise worsening symptoms. Discharge Date/Time: 02/26/19 13:42
[2019-02-26 02:01] LABS: BASOPHILS # (AUTO) 0.1 10^3/uL (0.0-0.1); BASOPHILS % (AUTO) 1.8 %; EOSINOPHILS # (AUTO) 0.3 10^3/uL (0.0-0.7); HGB - HEMOGLOBIN 14.7 g/dL (14.0-18.0); LYMPHOCYTES # (AUTO) 1.5 10^3/uL (1.5-3.5); LYMPHOCYTES % (AUTO) 38.7 %; MEAN CORPUSCULAR HEMOGLOBIN 31.2 pg (27.0-31.0); MEAN CORPUSCULAR HGB CONC 33.7 g/dL (32.0-36.0); MEAN CORPUSCULAR VOLUME 92.7 fL (80.0-94.0); MEAN PLATELET VOLUME 8.5 fL (7.4-11.4); MONOCYTES # (AUTO) 0.4 10^3/uL (0.0-1.0); MONOCYTES % (AUTO) 10.9 %; NEUTROPHILS # (AUTO) 1.6 10^3/uL (1.5-6.6); NEUTROPHILS % (AUTO) 41.6 %; PLT - PLATELET COUNT 174 10^3/uL (130-450); RED CELL DISTRIBUTION WIDTH 14.9 % (12.0-15.0); WHITE BLOOD COUNT 3.9 x10^3/uL (4.8-10.8)
[2019-02-26 02:12] LABS: MUDS CUTOFF CONCENTRATIONS CUTOFF CONC BELOW:
[2019-02-26 02:12] LABS: ACETAMINOPHEN 10 ug/mL (10-30); BUN - BLOOD UREA NITROGEN 16 mg/dL (6-20); CARBON DIOXIDE - CO2 30 mmol/L (21-32); CHLORIDE 101 mmol/L (101-111); CREATININE 0.9 mg/dL (0.6-1.2); GFR - MDRD 97 (>89); GLUCOSE 93 mg/dL (70-100); SALICYLATE < 6.0 mg/dL; SODIUM 139 mmol/L (135-145)
[2019-02-26 02:14] LABS: BILIRUBIN,URINE NEGATIVE (NEGATIVE); GLUCOSE, URINE (UA) NEGATIVE (NEGATIVE); KETONES,URINE (UA) NEGATIVE (NEGATIVE); LEUKOCYTE ESTERASE, URINE NEGATIVE (NEGATIVE); NITRITE,URINE NEGATIVE (NEGATIVE); OCCULT BLOOD,URINE NEGATIVE (NEGATIVE); PROTEIN,URINE NEGATIVE (NEGATIVE); UROBILINOGEN,URINE 0.2 (NORMAL) E.U./dL (NORMAL)
[2019-02-26 02:18] LABS: CLARITY,URINE CLEAR (CLEAR)
[2019-02-26 02:25] LABS: AMPHETAMINE SCREEN,URINE NEGATIVE (NEGATIVE); BENZODIAZEPINES SCREEN, URINE POSITIVE (NEGATIVE); COCAINE SCREEN URINE NEGATIVE (NEGATIVE); METHADONE SCREEN, URINE NEGATIVE (NEGATIVE); METHAMPHETAMINES SCREEN, URINE NEGATIVE (NEGATIVE); OPIATE SCREEN, URINE NEGATIVE (NEGATIVE); OXYCODONE SCREEN, URINE POSITIVE (NEGATIVE); PROPOXYPHENE SCREEN, URINE NEGATIVE (NEGATIVE); TRICYCLIC ANTIDEPRESSANT,URINE NEGATIVE (NEGATIVE)
[2019-02-26] MEDS ORDERED: ONDANSETRON 4 MG/2 ML VIAL IVP STA ×2 (07:23→12:18)
[2019-02-26] MEDS ORDERED: oxyCODONE 5 MG TABLET PO STA (07:37)
[2019-02-26] MEDS ORDERED: SODIUM CHLORIDE 0.9% 1,000 ML IV ONE (12:18)
[2019-02-26] MEDS ORDERED: MAG HYDROX/AL HYDROX/SIMETH 30 ML UDC PO STA (13:17)
--- NOTE | 2019-02-26 13:37 | ED Physician Documentation ---
PD HPI MHE - Stated complaint Stated Complaint: SI/OD - Chief complaint Chief Complaint: MHE PD PAST MEDICAL HISTORY - Past Medical History Past Medical History: Yes Cardiovascular: None Respiratory: None Endocrine/Autoimmune: None GI: GERD, Other : Incontinence HEENT: None Psych: Depression Musculoskeletal: Other Derm: None - Past Surgical History Past Surgical History: Yes Ortho: Arthroscopic surgery - Present Medications Home Medications: Ambulatory Orders Medication Instructions Recorded Confirmed OXcarbazepine [Trileptal] 300 mg PO BID 04/03/14 12/24/16 Ondansetron [Zofran Odt] 4 - 8 mg PO .BID-QID 04/03/14 12/24/16 Pregabalin [Lyrica] 75 mg PO Q4HR 04/03/14 12/24/16 RX: Cholecalciferol (Vitamin D3) 5,000 units PO DAILY 04/03/14 12/24/16 [Vitamin D3] Tizanidine HCl [Zanaflex] 4 mg PO DAILY 04/03/14 12/24/16 RX: Cranberry 500 mg PO DAILY 09/15/15 12/24/16 RX: Docusate Sodium 100Mg Capsule 200 mg PO DAILY 09/15/15 12/24/16 [Colace 100Mg Capsule] RX: Dronabinol [Marinol] 5 mg PO QID 09/15/15 12/24/16 RX: Naltrexone HCl 4.5 mg PO DAILY 09/15/15 12/24/16 RX: Senna [Senokot] 8.6 mg PO DAILY 09/15/15 12/24/16 Papaya [Papaya Enzyme] 1 tab PO DAILY 12/24/16 12/24/16 Polyethylene Glycol 3350 [Miralax] 17 gm PO .Q1-2DAYS 12/24/16 12/24/16 RX: Cyanocobalamin (Vitamin B-12) 1,000 mcg PO DAILY 12/24/16 12/24/16 [Vitamin B-12] RX: Folic Acid 0.8 mg PO DAILY 12/24/16 12/24/16 RX: Phosphatidyl Serine 100 mg PO DAILY 12/24/16 12/24/16 [Phosphatidylserine] RX: Tizanidine HCl [Zanaflex] 4 mg PO DAILY@1500 12/24/16 12/24/16 RX: Tizanidine HCl [Zanaflex] 6 mg PO QPM 12/24/16 12/24/16 Saccharomyces Boulardii [Florastor] 250 mg PO DAILY 12/24/16 12/24/16 Hydrocortisone Acetate [Anucort-Hc] 25 mg RC DAILY #5 supp.rect 03/13/18 - Allergies Allergies/Adverse Reactions: Allergies Allergy/AdvReac Type Severity Reaction Status Date / Time ampicillin AdvReac Unknown Verified 02/26/19 00:17 ciprofloxacin [From Cipro] AdvReac Unknown Verified 02/26/19 00:17 - Social History Does the pt smoke?: No Smoking Status: Never smoker Does the pt drink ETOH?: No Does the pt have substance abuse?: No - Immunizations Immunizations are current?: Yes - POLST Patient has POLST: Yes Results - Vitals Vitals: Oxygen O2 Source Room air - Labs Labs: Laboratory Tests 02/26/19 02/26/19 02/26/19 01:40 01:40 02:00 WBC 3.9 L RBC 4.70 Hgb 14.7 Hct 43.6 MCV 92.7 MCH 31.2 H MCHC 33.7 RDW 14.9 Plt Count 174 MPV 8.5 Neut # (Auto) 1.6 Lymph # (Auto) 1.5 [place] # (Auto) 0.4 Eos # (Auto) 0.3 Baso # (Auto) 0.1 Absolute Nucleated RBC 0.00 Nucleated RBC % 0.1 Sodium 139 Potassium 3.5 Chloride 101 Carbon Dioxide 30 Anion Gap 8.0 BUN 16 Creatinine 0.9 Estimated GFR (MDRD) 97 Glucose 93 Calcium 9.0 Urine Color YELLOW Urine Clarity CLEAR Urine pH 7.0 Ur Specific [place] 1.010 Urine Protein NEGATIVE Urine Glucose (UA) NEGATIVE Urine Ketones NEGATIVE Urine Occult Blood NEGATIVE Urine Nitrite NEGATIVE Urine Bilirubin NEGATIVE Urine Urobilinogen 0.2 (NORMAL) Ur Leukocyte Esterase NEGATIVE Ur Microscopic Review NOT INDICATED Urine Culture Comments NOT INDICATED Salicylates < 6.0 Urine Opiates Screen NEGATIVE Ur Oxycodone Screen POSITIVE H Urine Methadone Screen NEGATIVE Ur Propoxyphene Screen NEGATIVE Acetaminophen 10 Ur Barbiturates Screen NEGATIVE Ur Tricyclics Screen NEGATIVE Ur Phencyclidine Scrn NEGATIVE Ur Amphetamine Screen NEGATIVE U Methamphetamines Scrn NEGATIVE U Benzodiazepines Scrn POSITIVE H Urine Cocaine Screen NEGATIVE U Cannabinoids Screen POSITIVE H Ethyl Alcohol < 5.0 PD MEDICAL DECISION MAKING - ED course ED course: At change of shift the patient's care was turned over to me pending evaluation by medical service representative. After her evaluation, she recommended outpatient counseling, based on her conversations with the patient and his mother. I discussed this with them, and they are in full agreement. During his course in the emergency department the patient was treated with IV normal saline, and a GI cocktail. He remained tachycardic, but less so, at the time of discharge. I discussed with him and his mother potentially worrisome signs or symptoms that should prompt reevaluation in the emergency department. Departure - Departure Disposition: 01 Home, Self Care Clinical Impression: Medication overdose Qualifiers: Encounter type: initial encounter Injury intent: intentional self-harm Qualified Code(s): T50.902A - Poisoning by unspecified drugs, medicaments and biological substances, intentional self-harm, initial encounter Condition: Stable Instructions: ED Depression, ED Overdose Intentional Follow-Up: KE ESPOSITO [Primary Care Provider] - Comments: Drink plenty of fluids. You can use liquid antacid, such as Maalox or Mylanta if you develop recurrent epigastric discomfort. Follow-up for outpatient counseling as planned. Return to the emergency department if you are feeling increasingly depressed or suicidal, or otherwise worsening symptoms. Discharge Date/Time: 02/26/19 13:42
[2019-02-26 13:42] VITALS: BP 112/74
== END 2019-02-26 13:42 | disposition home or self-care (01) ==
LOC: EDUNIT# → ED 00:07
DX: T40.2X2A Poisoning by other opioids, intentional self-harm, initial encounter (principal); T42.4X2A Poisoning by benzodiazepines, intentional self-harm, initial encounter
CPT/HCPCS: 36415; 80048; 80320; 80329; 81003; 85025; 93005; 96361; 96374; 96376; 99284; 99285; A9270; 80306; 80307; 81001; 87086

== ENCOUNTER 2019-08-07 14:43 | Outpatient (CLI) | payer OTHER ==
[2019-08-07 15:47] LABS: BASOPHILS % (AUTO) 0.4 %; EOSINOPHILS % (AUTO) 0.4 %; HGB - HEMOGLOBIN 15.3 g/dL (14.0-18.0); LYMPHOCYTES # (AUTO) 1.2 10^3/uL (1.5-3.5); LYMPHOCYTES % (AUTO) 14.8 %; MEAN CORPUSCULAR HEMOGLOBIN 30.7 pg (27.0-31.0); MEAN CORPUSCULAR HGB CONC 32.6 g/dL (32.0-36.0); MEAN CORPUSCULAR VOLUME 94.2 fL (80.0-94.0); MEAN PLATELET VOLUME 9.8 fL (7.4-11.4); MONOCYTES # (AUTO) 0.7 10^3/uL (0.0-1.0); MONOCYTES % (AUTO) 8.9 %; NEUTROPHILS # (AUTO) 5.9 10^3/uL (1.5-6.6); NEUTROPHILS % (AUTO) 75.2 %; PLT - PLATELET COUNT 191 10^3/uL (130-450); RED BLOOD COUNT 4.98 10^6/uL (4.70-6.10); RED CELL DISTRIBUTION WIDTH 14.3 % (12.0-15.0); WHITE BLOOD COUNT 7.8 x10^3/uL (4.8-10.8)
[2019-08-07 15:53] LABS: ALBUMIN 4.2 g/dL (3.2-5.5); ALBUMIN/GLOBULIN RATIO 1.2 (1.0-2.2); BILIRUBIN,TOTAL 0.6 mg/dL (0.2-1.0); CALCIUM 9.5 mg/dL (8.5-10.3); CREATININE 0.8 mg/dL (0.6-1.2); TOTAL PROTEIN 7.8 g/dL (6.7-8.2)
--- NOTE | 2019-08-07 16:20 | XRAY Report ---
Reason: POSSIBLE FX FOLLOWING INJURY W/JAW PAIN, RT LEG PX Procedure Date: 08/07/2019 Accession Number: [id number] / [id number] Procedure: XR - Foot 3 View LT CPT Code: FULL RESULT: EXAM: LEFT FOOT RADIOGRAPHY EXAM DATE: 08/07/2019 03:37 PM. CLINICAL HISTORY: Pain. History of COMPARISON: LEG LOWER RT 08/07/2019 2:55 PM ANKLE 3 VIEW LT 08/07/2019 2:55 PM. TECHNIQUE: 3 views. FINDINGS: Bones: There is patchy disuse osteopenia. There is an acute nondisplaced fracture of the distal left fifth metatarsal near the metatarsal head. No evidence of intra-articular involvement. Joints: Normal. No subluxations. Soft Tissues: Normal. No soft tissue swelling. IMPRESSION: 1. Acute nondisplaced fracture of distal left fifth metatarsal. 2. Diffuse disuse osteopenia. RADIA
--- NOTE | 2019-08-07 16:27 | XRAY Report ---
Reason: POSSIBLE FX FOLLOWING INJURY W/JAW PAIN Procedure Date: 08/07/2019 Accession Number: [id number] / [id number] Procedure: XR - Facial Bones Complete CPT Code: FULL RESULT: EXAM: FACIAL BONES RADIOGRAPHY EXAM DATE: 08/07/2019 03:32 PM. CLINICAL HISTORY: Right facial pain following trauma. COMPARISON: None. TECHNIQUE: 3 views. FINDINGS: Bones: Normal. No fractures or bone lesions. Temporomandibular Joints: Normal. Sinuses: Normal. No opacities or fluid levels. Other: Normal. No soft tissue swelling. IMPRESSION: No evidence of a facial fracture. Both mandibles also appear normal. However, this exam does not completely evaluate the temporomandibular joints. If clinically required, consider bilateral TMJ series. RADIA
--- NOTE | 2019-08-07 16:28 | XRAY Report ---
Reason: POSSIBLE FX FOLLOWING INJURY W/JAW PAIN, RT LEG PX Procedure Date: 08/07/2019 Accession Number: [id number] / [id number] Procedure: XR - Tib/Fib RT CPT Code: FULL RESULT: EXAM: RIGHT TIBIA/FIBULA RADIOGRAPHY EXAM DATE: 08/07/2019 03:34 PM. CLINICAL HISTORY: Right leg pain. History of proximal right tibial fracture. COMPARISON: LEG LOWER RT 12/09/2018 2:53 PM. TECHNIQUE: 2 views. FINDINGS: Bones: Satisfactory appearance of the internally fixated proximal right tibial fracture with interval partial healing. Normal alignment. No evidence of hardware failure or complication. There is patchy generalized disuse osteopenia. Joints: The visualized knee and ankle joints are normal. No effusions. Soft Tissues: Normal. No soft tissue swelling. IMPRESSION: 1. No evidence of hardware failure or complication. 2. Status post ORIF with anatomic alignment. Partial healing. 3. There is patchy generalized disuse osteopenia. RADIA
--- NOTE | 2019-08-07 16:41 | XRAY Report ---
Reason: POSSIBLE FX FOLLOWING INJURY W/JAW PAIN, RT LEG PX Procedure Date: 08/07/2019 Accession Number: [id number] / [id number] Procedure: XR - Ankle 3 View LT CPT Code: FULL RESULT: EXAM: LEFT ANKLE RADIOGRAPHY EXAM DATE: 08/07/2019 03:39 PM. CLINICAL HISTORY: Left foot/ankle pain. COMPARISON: None. TECHNIQUE: 3 views. FINDINGS: Bones: No acute abnormality. Negative for fracture. Generalized patchy disuse osteopenia. Joints: Normal. No effusion. No subluxations. The ankle mortise is normally aligned. Soft Tissues: Normal. No soft tissue swelling. IMPRESSION: 1. Generalized patchy disuse osteopenia. 2. Otherwise negative exam. RADIA
[2019-08-07 21:59] LABS: TRICHOMONAS VAGINALIS DNA NEGATIVE (NEGATIVE)
[2019-08-10 16:16] LABS: HIV AG/AB 4TH GEN NON-REACTIVE (NON-REACTIVE)
[2019-08-11 14:41] LABS: HSV 2 IGG TYPE SPECIFIC AB <0.90 index
== END 2019-08-07 14:44 | disposition home or self-care (01) ==
LOC: DI 14:43
PROVIDERS: ATTEND Physician Assistant Medical
DX: S92.355A Nondisplaced fracture of fifth metatarsal bone, left foot, initial encounter for closed fracture (principal); M85.872 Other specified disorders of bone density and structure, left ankle and foot; M85.861 Other specified disorders of bone density and structure, right lower leg; R68.84 Jaw pain; B34.9 Viral infection, unspecified; K13.70 Unspecified lesions of oral mucosa; Z11.3 Encounter for screening for infections with a predominantly sexual mode of transmission; Z11.59 Encounter for screening for other viral diseases
CPT/HCPCS: 36415; 70150; 80053; 85025; 86695; 86696; 86735; 86762; 86765; 87389; 87491; 87591; 87661

== ENCOUNTER 2019-10-06 15:51 | Outpatient (CLI) | payer OTHER ==
[2019-10-06 16:04] LABS: BASOPHILS # (AUTO) 0.1 10^3/uL (0.0-0.1); BASOPHILS % (AUTO) 1.4 %; EOSINOPHILS # (AUTO) 0.2 10^3/uL (0.0-0.7); EOSINOPHILS % (AUTO) 3.9 %; LYMPHOCYTES # (AUTO) 1.3 10^3/uL (1.5-3.5); LYMPHOCYTES % (AUTO) 27.3 %; MEAN CORPUSCULAR HEMOGLOBIN 31.7 pg (27.0-31.0); MEAN CORPUSCULAR HGB CONC 33.9 g/dL (32.0-36.0); MEAN CORPUSCULAR VOLUME 93.7 fL (80.0-94.0); MEAN PLATELET VOLUME 9.5 fL (7.4-11.4); MONOCYTES # (AUTO) 0.4 10^3/uL (0.0-1.0); MONOCYTES % (AUTO) 8.8 %; NEUTROPHILS # (AUTO) 2.9 10^3/uL (1.5-6.6); NEUTROPHILS % (AUTO) 58.4 %; PLT - PLATELET COUNT 214 10^3/uL (130-450); RED BLOOD COUNT 5.04 10^6/uL (4.70-6.10); RED CELL DISTRIBUTION WIDTH 12.9 % (12.0-15.0); WHITE BLOOD COUNT 4.9 x10^3/uL (4.8-10.8)
[2019-10-06 16:17] LABS: ALBUMIN 4.1 g/dL (3.2-5.5); ALBUMIN/GLOBULIN RATIO 1.2 (1.0-2.2); BILIRUBIN,TOTAL 0.8 mg/dL (0.2-1.0); CALCIUM 9.3 mg/dL (8.5-10.3); TOTAL PROTEIN 7.5 g/dL (6.7-8.2)
== END 2019-10-06 15:52 | disposition home or self-care (01) ==
LOC: LAB 15:51
PROVIDERS: ATTEND Physician Assistant Medical
DX: R11.2 Nausea with vomiting, unspecified (principal)
CPT/HCPCS: 36415; 80053; 85025

== ENCOUNTER 2020-04-07 08:00 | Outpatient (CLI) | payer OTHER | END 2020-04-07 23:59 | disposition home or self-care (01) | LOC: LAB.R 08:00 | PROVIDERS: ATTEND Physician Assistant Medical | DX: Z20.828 Contact with and (suspected) exposure to other viral communicable diseases (principal); B97.89 Other viral agents as the cause of diseases classified elsewhere | CPT/HCPCS: 81599 ==

== ENCOUNTER 2020-06-29 15:26 | Emergency (ER) | payer OTHER ==
--- NOTE | 2020-06-29 16:03 | ED Physician Documentation ---
PD HPI ABD PAIN - Stated complaint Stated Complaint: ABD PX - Chief complaint Chief Complaint: Abd Pain - History obtained from History obtained from: Patient, Family - History of Present Illness Timing - onset: How many days ago (4) Timing - duration: Days (4) Timing - details: Gradual onset, Still present Quality: Sharp, Pain Location: LLQ Improved by: Laying still Worsened by: Moving, Position, Palpation Associated symptoms: Nausea, Vomiting, Constipation Similar symptoms before: Diagnosis (diverticulitis) Recently seen: Not recently seen - Additional information Additional information: 35-year-old male T7 paraplegic has developed some left lower quadrant abdominal pain about 4 days ago. He has had a history of diverticulitis previously feels that this is the similar. He has had more hard stool than usual. He has vomited some blood recently as well. He does vomit usually in the morning. He does not feel that his vomiting is any different than usual with the exception of some blood. Review of Systems Constitutional: denies: Fever Ears: denies: Ear pain Nose: denies: Congestion Throat: denies: Sore throat Cardiac: denies: Chest pain / pressure, Palpitations, Pedal edema, Calf pain Respiratory: denies: Dyspnea, Cough GI: reports: Abdominal Pain, Nausea, Vomiting, Constipation : denies: Dysuria, Frequency PD PAST MEDICAL HISTORY - Past Medical History Cardiovascular: None Respiratory: None Endocrine/Autoimmune: None GI: GERD, Other : Incontinence HEENT: None Psych: Depression Musculoskeletal: Other Derm: None - Past Surgical History Past Surgical History: Yes Ortho: Arthroscopic surgery - Present Medications Home Medications: Ambulatory Orders Medication Instructions Recorded Confirmed Cholecalciferol (Vitamin D3) 5,000 units PO DAILY 04/03/14 12/24/16 [Vitamin D3] OXcarbazepine [Trileptal] 300 mg PO BID 04/03/14 12/24/16 Ondansetron [Zofran Odt] 4 - 8 mg PO .BID-QID 04/03/14 12/24/16 Pregabalin [Lyrica] 75 mg PO Q4HR 04/03/14 12/24/16 Tizanidine HCl [Zanaflex] 4 mg PO DAILY 04/03/14 12/24/16 Cranberry 500 mg PO DAILY 09/15/15 12/24/16 Docusate Sodium 100Mg Capsule 200 mg PO DAILY 09/15/15 12/24/16 [Colace 100Mg Capsule] Naltrexone HCl 4.5 mg PO DAILY 09/15/15 12/24/16 Senna [Senokot] 8.6 mg PO DAILY 09/15/15 12/24/16 dronabinoL [Marinol] 5 mg PO QID 09/15/15 12/24/16 Cyanocobalamin (Vitamin B-12) 1,000 mcg PO DAILY 12/24/16 12/24/16 [Vitamin B-12] Folic Acid 0.8 mg PO DAILY 12/24/16 12/24/16 Papaya [Papaya Enzyme] 1 tab PO DAILY 12/24/16 12/24/16 Phosphatidyl Serine 100 mg PO DAILY 12/24/16 12/24/16 [Phosphatidylserine] Saccharomyces Boulardii [Florastor] 250 mg PO DAILY 12/24/16 12/24/16 Tizanidine HCl [Zanaflex] 4 mg PO DAILY@1500 12/24/16 12/24/16 Tizanidine HCl [Zanaflex] 6 mg PO QPM 12/24/16 12/24/16 polyethylene glycoL 3350 [Miralax] 17 gm PO .Q1-2DAYS 12/24/16 12/24/16 Hydrocortisone Acetate [Anucort-Hc] 25 mg RC DAILY #5 supp.rect 03/13/18 Sucralfate [Carafate] 1 gm PO ACHS #60 tablet 06/29/20 - Allergies Allergies/Adverse Reactions: Allergies Allergy/AdvReac Type Severity Reaction Status Date / Time ampicillin AdvReac Unknown Verified 06/29/20 15:41 ciprofloxacin [From Cipro] AdvReac Unknown Verified 06/29/20 15:41 - Social History Does the pt smoke?: No Smoking Status: Never smoker Does the pt drink ETOH?: No Does the pt have substance abuse?: No - Immunizations Immunizations are current?: Yes - POLST Patient has POLST: Yes PD ED PE NORMAL - Vitals Vital signs reviewed: Yes (normal ) - General General: Alert and oriented X 3, No acute distress, Well developed/nourished - HEENT HEENT: Atraumatic, PERRL, EOMI - Neck Neck: Supple, no meningeal sign, No bony TTP - Cardiac Cardiac: RRR, No murmur - Respiratory Respiratory: No respiratory distress, Clear bilaterally - Abdomen Abdomen: Soft, Other (tenderness to the left lower quadrant specific and reproducible ) - Back Back: No CVA TTP, No spinal TTP - Derm Derm: Normal color, Warm and dry, No rash - Extremities Extremities: No deformity, No edema, No calf tenderness / cord - Neuro Neuro: Alert and oriented X 3, metal neutralizer 2-12 intact, No motor deficit, Normal speech Eye Opening: Spontaneous Motor: Obeys Commands Verbal: Oriented GCS Score: 15 - Psych Psych: Normal mood, Normal affect Results - Vitals Vitals: Vital Signs - 24 hr 06/29/20 06/29/20 06/29/20 15:34 16:06 17:21 Temperature 36.7 C Heart Rate 88 70 70 Respiratory 18 15 16 Rate Blood Pressure 111/71 110/68 112/65 O2 Saturation 99 98 98 Oxygen O2 Source Room air - Labs Labs: Laboratory Tests 06/29/20 06/29/20 06/29/20 16:05 16:05 18:50 WBC 8.2 RBC 4.98 Hgb 15.6 Hct 44.4 MCV 89.2 MCH 31.3 H MCHC 35.1 RDW 13.5 Plt Count 212 MPV 9.6 Neut # (Auto) 6.6 Lymph # (Auto) 1.0 L [place] # (Auto) 0.5 Eos # (Auto) 0.0 Baso # (Auto) 0.1 Absolute Nucleated RBC 0.00 Nucleated RBC % 0.0 Sodium 138 Potassium 3.8 Chloride 101 Carbon Dioxide 29 Anion Gap 8.0 BUN 12 Creatinine 0.9 Estimated GFR (MDRD) 95 Glucose 104 H Calcium 9.4 Total Bilirubin 1.0 AST 15 ALT 18 Alkaline Phosphatase 45 Total Protein 7.4 Albumin 4.4 Globulin 3.0 Albumin/Globulin Ratio 1.5 Lipase 39 Urine Color YELLOW Urine Clarity CLEAR Urine pH 7.0 Ur Specific [place] 1.010 Urine Protein NEGATIVE Urine Glucose (UA) NEGATIVE Urine Ketones NEGATIVE Urine Occult Blood NEGATIVE Urine Nitrite NEGATIVE Urine Bilirubin NEGATIVE Urine Urobilinogen 0.2 (NORMAL) Ur Leukocyte Esterase NEGATIVE Ur Microscopic Review NOT INDICATED Urine Culture Comments NOT INDICATED - Rads (name of study) CT ab pel w/o Radiology: Prelim report reviewed (Impression: 1. No acute process no explanation for left lower quadrant pain normal appendix cholelithiasis without evidence of cholecystitis.) PD MEDICAL DECISION MAKING - ED course Complexity details: reviewed old records, reviewed results, re-evaluated patient, considered differential, d/w patient, d/w family ED course: 35-year-old paraplegic male with left lower quadrant abdominal pain has a negative CT scan of his abdomen pelvis and he has persistence of pain he has had some vomiting of blood. He has had vomiting daily now for 4 days. He states it is very typical for him to get nauseated every day but he usually only vomits about once per week. I have no explanation for the patient's pain he does not appear to have a pulled muscle and he has no evidence for diverticulitis, stone or other intra-abdominal process including constipation to be a cause of his pain. He has a sharp increase in his pain and he is administered viscous lidocaine and Mylanta.Patient does respond to the GI cocktail and he is administered Protonix intravenously.As well as Carafate orally Departure - Departure Disposition: 01 Home, Self Care Clinical Impression: Gastritis Qualifiers: Gastritis type: unspecified gastritis Chronicity: acute Gastritis bleeding: with bleeding Qualified Code(s): K29.01 - Acute gastritis with bleeding Condition: Stable Instructions: ED PUD Vs Gastritis Follow-Up: Jorge Barrientos MD [Provider Admit Priv/Credential] - Prescriptions: Sucralfate [Carafate] 1 gm PO ACHS #60 tablet Comments: Today appear appears you have gastritis or duodenitis with bleeding. The r ecommendation is to take Pepcid AC on a regular basis and I have prescribed some Carafate to take 4 times per day before meals and at bedtime that will aid in the healing.
[2020-06-29 16:12] LABS: BASOPHILS # (AUTO) 0.1 10^3/uL (0.0-0.1); BASOPHILS % (AUTO) 0.7 %; EOSINOPHILS % (AUTO) 0.2 %; HGB - HEMOGLOBIN 15.6 g/dL (14.0-18.0); LYMPHOCYTES % (AUTO) 11.9 %; MEAN CORPUSCULAR HEMOGLOBIN 31.3 pg (27.0-31.0); MEAN CORPUSCULAR HGB CONC 35.1 g/dL (32.0-36.0); MEAN CORPUSCULAR VOLUME 89.2 fL (80.0-94.0); MEAN PLATELET VOLUME 9.6 fL (7.4-11.4); MONOCYTES # (AUTO) 0.5 10^3/uL (0.0-1.0); MONOCYTES % (AUTO) 5.8 %; NEUTROPHILS # (AUTO) 6.6 10^3/uL (1.5-6.6); NEUTROPHILS % (AUTO) 81.2 %; PLT - PLATELET COUNT 212 10^3/uL (130-450); RED BLOOD COUNT 4.98 10^6/uL (4.70-6.10); RED CELL DISTRIBUTION WIDTH 13.5 % (12.0-15.0); WHITE BLOOD COUNT 8.2 x10^3/uL (4.8-10.8)
[2020-06-29] MEDS ORDERED: IOVERSOL 320 100 ML VIAL IVP ONE ×2 (16:22→17:44)
[2020-06-29 16:30] LABS: ALBUMIN 4.4 g/dL (3.2-5.5); ALBUMIN/GLOBULIN RATIO 1.5 (1.0-2.2); CALCIUM 9.4 mg/dL (8.5-10.3); CREATININE 0.9 mg/dL (0.6-1.2); TOTAL PROTEIN 7.4 g/dL (6.7-8.2)
[2020-06-29] MEDS ORDERED: ONDANSETRON 4 MG/2 ML VIAL IVP STA (16:55)
[2020-06-29 17:22] VITALS: BP 112/65
[2020-06-29] MEDS ORDERED: KETOROLAC 30 MG/ML VIAL IVP STA (17:35)
--- NOTE | 2020-06-29 17:51 | CT Report ---
PROCEDURE: Abdomen/Pelvis W INDICATIONS: LLQ pain CONTRAST: IV CONTRAST: Optiray 320 ml: 100 PO CONTRAST: *NO PO CONTRAST TECHNIQUE: After the administration of contrast, 5 mm thick sections acquired from the diaphragms to the sym physis. 5 mm thick coronal and sagittal reformats were acquired. For radiation dose reduction, the following was used: automated exposure control, adjustment of mA and/or kV according to patient size . COMPARISON: None. FINDINGS: Image quality: Excellent. ABDOMEN: Lung bases: Lung bases are clear. Heart size is normal. Solid organs: Liver and spleen are normal in size and enhancement. Gallbladder demonstrates multipl e lucent calculi within its lumen without wall thickening Biliary system is non dilated. Pancreas e nhances normally. No adrenal nodules. Left inferior pole renal cyst. Kidneys demonstrate otherwise normal size and enhancement, without hydronephrosis. Peritoneum and bowel: Bowel loops demonstrate normal wall thickness and caliber. No free fluid or a ir. Normal appendix. Nodes and vessels: No retroperitoneal or mesenteric adenopathy by size criteria. Aorta and inferior vena cava are normal in size. Miscellaneous: No ventral hernias. PELVIS: Genitourinary: Bladder wall thickness is normal. Miscellaneous: No inguinal hernias or adenopathy. Bones: No suspicious bony lesions. No vertebral body compression fractures. IMPRESSION: 1. No acute process. 2. No explanation for left lower quadrant pain. 3. Normal appendix. 4. Cholelithiasis without evidence of cholecystitis. Reviewed by: Pj Hernández MD on 06/29/2020 5:49 PM PDT Approved by: Pj Hernández MD on 06/29/2020 5:49 PM PDT Station ID: [id number]
[2020-06-29] MEDS ORDERED: SODIUM CHLORIDE 0.9% 1,000 ML IV STA (18:00)
[2020-06-29] MEDS ORDERED: LIDOCAINE VISCOUS 2% 15 ML UDC MM STA (18:07)
[2020-06-29] MEDS ORDERED: MAG HYDROX/AL HYDROX/SIMETH 30 ML UDC PO STA (18:07)
[2020-06-29] MEDS ORDERED: PANTOPRAZOLE 40 MG VIAL IVP STA (18:55)
[2020-06-29] MEDS ORDERED: SUCRALFATE 1 GM/10 ML UDC PO STA (18:56)
[2020-06-29 19:04] LABS: BILIRUBIN,URINE NEGATIVE (NEGATIVE); GLUCOSE, URINE (UA) NEGATIVE (NEGATIVE); KETONES,URINE (UA) NEGATIVE (NEGATIVE); LEUKOCYTE ESTERASE, URINE NEGATIVE (NEGATIVE); NITRITE,URINE NEGATIVE (NEGATIVE); OCCULT BLOOD,URINE NEGATIVE (NEGATIVE); PROTEIN,URINE NEGATIVE (NEGATIVE); UROBILINOGEN,URINE 0.2 (NORMAL) E.U./dL (NORMAL)
[2020-06-29 19:17] LABS: CLARITY,URINE CLEAR (CLEAR)
== END 2020-06-29 19:50 | disposition home or self-care (01) ==
LOC: ED 15:26
DX: K29.01 Acute gastritis with bleeding (principal); G82.20 Paraplegia, unspecified; Z20.828 Contact with and (suspected) exposure to other viral communicable diseases
CPT/HCPCS: 36415; 74177; 80053; 81003; 83690; 85025; 87635; 96361; 96374; 96375; 99284; A9270; Q9967; 81001; 87086

== ENCOUNTER 2020-11-30 12:53 | Outpatient (CLI) | payer OTHER ==
--- NOTE | 2020-11-30 16:45 | DEXA Report ---
PROCEDURE: Dexa Spine and/or Hip INDICATIONS: RT HUMERUS FRACTURE TECHNIQUE: Dual energy x-ray absorptiometry (DXA) was performed on a makr System. Regions measur ed are the AP Spine, femoral neck, and if needed forearm. COMPARISON: 11/21/2018 DEXA FINDINGS: Lumbar Spine: Left Hip: Bone Mineral Density 0.749 g/cm/cm,T score -2.4, compared to -2.9 Left Femoral Neck: Bone Mineral Density 0.824 g/cm/cm, T score -1.9, compared to -2.3 Left forearm: Bone Mineral Density 0.850 g/cm/cm, T score 1.4, compared to 1.1 (T score greater or equal to -1.0: NORMAL) (T score from -1.1 to -2.4: OSTEOPENIA) (T score less than or equal to -2.5 to: OSTEOPOROSIS) Impression: Prominent osteopenia particularly within the left hip although improved compared to prior exam. Patients with diagnosis of osteoporosis or osteopenia should have regular bone mineral density assess ment. For those eligible for Medicare, routine testing is allowed once every 2 years. Testing frequ ency can be increased for patients who have rapidly progressing disease or for those who are receivin g medical therapy to restore bone mass. Reviewed by: Shaina Meza MD on 11/30/2020 4:44 PM PST Approved by: Shaina Meza MD on 11/30/2020 4:44 PM PST Station ID: [id number]
== END 2020-11-30 12:54 | disposition home or self-care (01) ==
LOC: DI 12:53
PROVIDERS: ATTEND Internal Medicine Endocrinology, Diabetes & Metabolism
DX: M85.89 Other specified disorders of bone density and structure, multiple sites (principal); S42.261A Displaced fracture of lesser tuberosity of right humerus, initial encounter for closed fracture

== ENCOUNTER 2021-05-28 06:48 | Emergency (ER) | payer OTHER ==
[2021-05-28] MEDS ORDERED: DEXAMETHASONE 10 MG/ML VIAL PO STA (07:34)
[2021-05-28] MEDS ORDERED: IBUPROFEN 800 MG TABLET PO STA (07:34)
[2021-05-28] MEDS ORDERED: CHERRY SYRUP 10 ML UDC PO ONE (07:34)
--- NOTE | 2021-05-28 07:43 | ED Physician Documentation ---
History of Present Illness - Stated complaint Stated Complaint: THROAT PX - Chief complaint Chief Complaint: Heent - History obtained from History obtained from: Patient - History of Present Illness Timing: How many days ago (4) Pain level max: 6 Pain level now: 5 - Additonal information Additional information: Patient is a 36-year-old male, wheelchair-bound, presents to the emergency department with a sore throat, productive cough and losing his voice for the past 4 days. No fevers. Worse with swallowing, nothing makes it better. Has had his Covid vaccination. Does not smoke but occasionally vapes. Review of Systems Ten Systems: 10 systems reviewed and negative Constitutional: reports: Chills. denies: Fever Ears: denies: Ear pain Nose: reports: Rhinorrhea / runny nose, Congestion Throat: denies: Sore throat Cardiac: denies: Chest pain / pressure Respiratory: reports: Cough. denies: Dyspnea, Wheezing GI: denies: Abdominal Pain, Nausea, Vomiting, Diarrhea Skin: denies: Rash Musculoskeletal: denies: Neck pain, Back pain Neurologic: denies: Headache PD PAST MEDICAL HISTORY - Past Medical History Past Medical History: Yes Cardiovascular: None Respiratory: None Endocrine/Autoimmune: None GI: GERD, Other : Incontinence HEENT: None Psych: Depression Musculoskeletal: Other Derm: None - Past Surgical History Past Surgical History: Yes Ortho: Arthroscopic surgery - Present Medications Home Medications: Ambulatory Orders Medication Instructions Recorded Confirmed Cholecalciferol (Vitamin D3) 5,000 units PO DAILY 04/03/14 12/24/16 [Vitamin D3] OXcarbazepine [Trileptal] 300 mg PO BID 04/03/14 12/24/16 Ondansetron [Zofran Odt] 4 - 8 mg PO .BID-QID 04/03/14 12/24/16 Pregabalin [Lyrica] 75 mg PO Q4HR 04/03/14 12/24/16 Tizanidine HCl [Zanaflex] 4 mg PO DAILY 04/03/14 12/24/16 Cranberry 500 mg PO DAILY 09/15/15 12/24/16 Docusate Sodium 100Mg Capsule 200 mg PO DAILY 09/15/15 12/24/16 [Colace 100Mg Capsule] Naltrexone HCl 4.5 mg PO DAILY 09/15/15 12/24/16 Senna [Senokot] 8.6 mg PO DAILY 09/15/15 12/24/16 dronabinoL [Marinol] 5 mg PO QID 09/15/15 12/24/16 Cyanocobalamin (Vitamin B-12) 1,000 mcg PO DAILY 12/24/16 12/24/16 [Vitamin B-12] Folic Acid 0.8 mg PO DAILY 12/24/16 12/24/16 Papaya [Papaya Enzyme] 1 tab PO DAILY 12/24/16 12/24/16 Phosphatidyl Serine 100 mg PO DAILY 12/24/16 12/24/16 [Phosphatidylserine] Saccharomyces Boulardii [Florastor] 250 mg PO DAILY 12/24/16 12/24/16 Tizanidine HCl [Zanaflex] 4 mg PO DAILY@1500 12/24/16 12/24/16 Tizanidine HCl [Zanaflex] 6 mg PO QPM 12/24/16 12/24/16 polyethylene glycoL 3350 [Miralax] 17 gm PO .Q1-2DAYS 12/24/16 12/24/16 Hydrocortisone Acetate [Anucort-Hc] 25 mg RC DAILY #5 supp.rect 03/13/18 Sucralfate [Carafate] 1 gm PO ACHS #60 tablet 06/29/20 Benzonatate [Tessalon] 200 mg PO TID PRN #30 cap 05/28/21 Cetirizine HCl/Pseudoephedrine 1 each PO BID PRN #30 ea 05/28/21 [Zyrtec-D Tablet] Ibuprofen [Motrin] 800 mg PO Q8H PRN #30 tablet 05/28/21 - Allergies Allergies/Adverse Reactions: Allergies Allergy/AdvReac Type Severity Reaction Status Date / Time ampicillin AdvReac Unknown Verified 05/28/21 07:00 ciprofloxacin [From Cipro] AdvReac Unknown Verified 05/28/21 07:00 - Social History Does the pt smoke?: No Smoking Status: Never smoker Does the pt drink ETOH?: No Does the pt have substance abuse?: No - Immunizations Immunizations are current?: Yes - POLST Patient has POLST: Yes PD ED PE NORMAL - Vitals Vital signs reviewed: Yes - General General: Alert and oriented X 3, No acute distress - HEENT HEENT: Moist mucous membranes, Other (mild posterior oropharyngeal erythema, without tonsillar exudates. uvula midline.) - Neck Neck: Supple, no meningeal sign, Other (shotty anterior cervical lymphadenopathy. ) - Cardiac Cardiac: RRR - Respiratory Respiratory: No respiratory distress, Clear bilaterally - Abdomen Abdomen: Soft, Non tender, Non distended - Derm Derm: Warm and dry - Neuro Neuro: Alert and oriented X 3 - Psych Psych: Normal mood, Normal affect Results - Vitals Vitals: Vital Signs - 24 hr 05/28/21 05/28/21 06:50 09:55 Temperature 36.9 C 37.0 C Heart Rate 90 95 Respiratory 16 Rate Blood Pressure 133/80 H 119/80 O2 Saturation 99 Oxygen O2 Source Room air - Labs Labs: Laboratory Tests 05/28/21 05/28/21 08:20 08:20 Nasal Adenovirus (PCR) NOT DETECTED Nasal B. parapertussis DNA (PCR) NOT DETECTED Nasal Coronavir 229E PCR NOT DETECTED Nasal Coronavir HKU1 PCR NOT DETECTED Nasal Coronavir NL63 PCR NOT DETECTED Nasal Coronavir OC43 PCR NOT DETECTED Nasal Enterovir/Rhinovir PCR DETECTED A Nasal Influenza B PCR NOT DETECTED Nasal Influenza A PCR NOT DETECTED Nasal Parainfluen 1 PCR NOT DETECTED Nasal Parainfluen 2 PCR NOT DETECTED Nasal Parainfluen 3 PCR NOT DETECTED Nasal Parainfluen 4 PCR NOT DETECTED Nasal RSV (PCR) NOT DETECTED Nasal B.pertussis DNA PCR NOT DETECTED Nasal C.pneumoniae (PCR) NOT DETECTED Tyler Human Metapneumo PCR NOT DETECTED Nasal M.pneumoniae (PCR) NOT DETECTED Nasal SARS-CoV-2 (PCR) NOT DETECTED Group A Strep Rapid Negative - Rads (name of study) cxr Radiology: Final report received, EMP read contemporaneously, See rad report (no acute abnormalities) PD MEDICAL DECISION MAKING - ED course Complexity details: reviewed results, re-evaluated patient, considered differential, d/w patient ED course: 36-year-old male with what appears to be a viral upper respiratory infection. Negative Covid. Positive for rhinovirus. No acute findings on x-ray. Negative rapid strep. Patient is well-appearing, nontoxic. Afebrile. Normal phonation. No trismus. Patient counseled regarding signs and symptoms for which I believe and urgent re-evaluation would be necessary. Patient with good understanding of and agreement to plan and is comfortable going home at this time This document was made in part using voice recognition software. While efforts are made to proofread this document, sound alike and grammatical errors may occur. Departure - Departure Disposition: 01 Home, Self Care Clinical Impression: Viral URI Condition: Good Instructions: ED Viral Syndrome Follow-Up: Jorge Barrientos MD [Primary Care Provider] - Within 1 week Prescriptions: Ibuprofen [Motrin] 800 mg PO Q8H PRN #30 tablet PRN Reason: PAIN &/OR FEVER Benzonatate [Tessalon] 200 mg PO TID PRN #30 cap PRN Reason: Cough Cetirizine HCl/Pseudoephedrine [Zyrtec-D Tablet] 1 each PO BID PRN #30 ea PRN Reason: nasal congestion Comments: Continue fluids and rest. Follow-up with your doctor for further care. Return if you worsen. Discharge Date/Time: 05/28/21 09:55
--- NOTE | 2021-05-28 08:11 | XRAY Report ---
PROCEDURE: Chest 2 View X-Ray INDICATIONS: cough TECHNIQUE: 2 view(s) of the chest. COMPARISON: December 12, 2017 FINDINGS: Surgical changes and devices: 2 spinal stimulator devices are seen. Lungs and pleura: No pleural effusions or pneumothorax. Lungs are clear. Mediastinum: Mediastinal contours are normal. Heart size is normal. Bones and chest wall: No suspicious bony abnormalities. Soft tissues appear unremarkable. IMPRESSION: Clear lungs, without infiltrates. 2. Stable spinal stimulator devices are seen. Reviewed by: Watson Young MD on 05/28/2021 7:10 AM DON Approved by: Watson Young MD on 05/28/2021 7:10 AM DON Station ID: [id number]
[2021-05-28 09:06] LABS: RAPID STREP SCREEN Negative (Negative)
[2021-05-28 09:32] LABS: CORONAVIRUS 229E-RESP PCR NOT DETECTED; CORONAVIRUS HKU1-RESP PCR NOT DETECTED; CORONAVIRUS NL63-RESP PCR NOT DETECTED; CORONAVIRUS OC43-RESP PCR NOT DETECTED; HUMAN METAPNEUMOVIRUS NOT DETECTED; INFLUENZA A- RESP PCR PANEL NOT DETECTED; RHINOVIRUS/ENTEROVIRUS DETECTED; SARS-CoV-2 -RESP PCR PANEL NOT DETECTED
[2021-05-28 09:33] LABS: B. PARAPERTUSSIS- RESP PCR PAN NOT DETECTED; B. PERTUSSIS- RESP PCR PANEL NOT DETECTED; C. PNEUMONIAE- RESP PCR PANEL NOT DETECTED; INFLUENZA B - RESP PCR PANEL NOT DETECTED; M. PNEUMONIAE- RESP PCR PANEL NOT DETECTED; PARAINFLUENZA VIRUS 1 NOT DETECTED; PARAINFLUENZA VIRUS 2 NOT DETECTED; PARAINFLUENZA VIRUS 3 NOT DETECTED; PARAINFLUENZA VIRUS 4 NOT DETECTED; RSV- RESP PCR PANEL NOT DETECTED
[2021-05-28 09:56] VITALS: BP 119/80
== END 2021-05-28 09:55 | disposition home or self-care (01) ==
LOC: ED 06:48
DX: J06.9 Acute upper respiratory infection, unspecified (principal); Z20.822 Contact with and (suspected) exposure to COVID-19
CPT/HCPCS: 0202U; 71046; 87070; 87430; 99283; 99284; A9270

== ENCOUNTER 2021-07-12 08:58 | Outpatient (CLI) | payer OTHER | END 2021-07-12 08:59 | disposition home or self-care (01) | LOC: LAB.S 08:58 | PROVIDERS: ATTEND Psychiatry & Neurology Neurology | DX: G90.09 Other idiopathic peripheral autonomic neuropathy (principal); G90.3 Multi-system degeneration of the autonomic nervous system | CPT/HCPCS: 36415; 81599; 82384; 83088; 83519; 83520; 83835; 86235; 86316; 86334 ==

== ENCOUNTER 2021-07-27 13:11 | Outpatient (CLI) | payer OTHER ==
--- NOTE | 2021-07-27 14:04 | XRAY Report ---
PROCEDURE: Sacrum/Coccyx INDICATIONS: CONTUSION OF LOWER BACK AND PELVIS TECHNIQUE: 3 views of the sacrum and coccyx acquired. COMPARISON: CT abdomen pelvis 05/28/2021 FINDINGS: Bones: No fractures or dislocations. No suspicious bony lesions. Soft tissues: Visualized bowel gas pattern is normal. No suspicious soft tissue densities. IMPRESSION: No visualized acute fracture or dislocation. However, occult injury cannot be excluded. Recommend faheem rt interval imaging follow-up in 7-10 days as clinically indicated for additional evaluation. Reviewed by: Shaina Meza MD on 07/27/2021 2:02 PM PDT Approved by: Shaina Meza MD on 07/27/2021 2:02 PM PDT Station ID: [id number]
== END 2021-07-27 23:59 | disposition home or self-care (01) ==
LOC: DI.S 13:11
PROVIDERS: ATTEND Physician Assistant Medical
DX: S30.0XXA Contusion of lower back and pelvis, initial encounter (principal)

== ENCOUNTER 2021-08-01 22:31 | Outpatient (CLI) | payer OTHER | END 2021-08-01 22:32 | disposition critical access hospital (66) | LOC: EMS 22:31 | DX: R41.82 Altered mental status, unspecified (principal); R25.1 Tremor, unspecified; S01.81XA Laceration without foreign body of other part of head, initial encounter; W22.8XXA Striking against or struck by other objects, initial encounter; Y92.003 Bedroom of unspecified non-institutional (private) residence as the place of occurrence of the external cause | CPT/HCPCS: A0425; A0429 ==

== ENCOUNTER 2021-08-01 23:08 | Emergency (ER) | payer OTHER ==
--- NOTE | 2021-08-01 23:43 | ED Physician Documentation ---
History of Present Illness - Stated complaint Stated Complaint: HIT HEAD - Chief complaint Chief Complaint: Neuro - Additonal information Additional information: 36yM with CIDP/paraplegia p/w AMS today, bibems with normal fingerstick/vitals i n field and report that patient hit his head while in bed this am without LOC. not on AC. also with confusion during the day today. patient unable to give day of week and states that it is 2020. initially got his birthday wrong and then when asked to try again got it correct. He also states he doesn't remember going down to the water from his house but then upon returning to the room and speaking with him again he states he was scooting on his bottom while down at the water and is worried he may have reinjured his coccyx after falling and hurting it last week. d/w Lachelle (mother) - she confirms the patient hit siderail of bed with forehead and nose this morning. told his girlfriend he was having a dream, was talking about being in [employer] and high school and told her while still in bed she had to leave because his parents would find out she was here. He got into the wheelchair and went to the bathroom and she dressed the wound. he was "still struggling" when mother saw him later in the day but didn't want to go to the emergency room. He has had several concussions, most recent in [place] in 2019, with similar symptoms. Mother states she and his significant other decided to bring him in because he got more agitated and confused throughout the day and went down to the water alone in a wheelchair from his house this evening, apparently distraught. Patient has baseline short term memory loss, intermittent confusion, R ear hearing loss. She reports that the patient has been depressed of late but with no active SI/HI/AVH today. Patient confirms no SI/HI/AVH. mother reports "several" suicide attempts since illness in 2011 but not currently seeing a psychiatrist and has never been hospitalized for IPP care. Seen for mental health [facility] at [facility] in the past. Review of Systems Unable to obtain: Confused PD PAST MEDICAL HISTORY - Past Medical History Cardiovascular: None Respiratory: None Endocrine/Autoimmune: None GI: GERD, Other : Incontinence HEENT: None Psych: Depression Musculoskeletal: Other Derm: None - Past Surgical History Past Surgical History: Yes Ortho: Arthroscopic surgery - Present Medications Home Medications: Ambulatory Orders Medication Instructions Recorded Confirmed Cholecalciferol (Vitamin D3) 5,000 units PO DAILY 04/03/14 12/24/16 [Vitamin D3] OXcarbazepine [Trileptal] 300 mg PO BID 04/03/14 12/24/16 Ondansetron [Zofran Odt] 4 - 8 mg PO .BID-QID 04/03/14 12/24/16 Pregabalin [Lyrica] 75 mg PO Q4HR 04/03/14 12/24/16 Tizanidine HCl [Zanaflex] 4 mg PO DAILY 04/03/14 12/24/16 Cranberry 500 mg PO DAILY 09/15/15 12/24/16 Docusate Sodium 100Mg Capsule 200 mg PO DAILY 09/15/15 12/24/16 [Colace 100Mg Capsule] Naltrexone HCl 4.5 mg PO DAILY 09/15/15 12/24/16 Senna [Senokot] 8.6 mg PO DAILY 09/15/15 12/24/16 dronabinoL [Marinol] 5 mg PO QID 09/15/15 12/24/16 Cyanocobalamin (Vitamin B-12) 1,000 mcg PO DAILY 12/24/16 12/24/16 [Vitamin B-12] Folic Acid 0.8 mg PO DAILY 12/24/16 12/24/16 Papaya [Papaya Enzyme] 1 tab PO DAILY 12/24/16 12/24/16 Phosphatidyl Serine 100 mg PO DAILY 12/24/16 12/24/16 [Phosphatidylserine] Saccharomyces Boulardii [Florastor] 250 mg PO DAILY 12/24/16 12/24/16 Tizanidine HCl [Zanaflex] 4 mg PO DAILY@1500 12/24/16 12/24/16 Tizanidine HCl [Zanaflex] 6 mg PO QPM 12/24/16 12/24/16 polyethylene glycoL 3350 [Miralax] 17 gm PO .Q1-2DAYS 12/24/16 12/24/16 Hydrocortisone Acetate [Anucort-Hc] 25 mg RC DAILY #5 supp.rect 03/13/18 Sucralfate [Carafate] 1 gm PO ACHS #60 tablet 06/29/20 Benzonatate [Tessalon] 200 mg PO TID PRN #30 cap 05/28/21 Cetirizine HCl/Pseudoephedrine 1 each PO BID PRN #30 ea 05/28/21 [Zyrtec-D Tablet] Ibuprofen [Motrin] 800 mg PO Q8H PRN #30 tablet 05/28/21 - Allergies Allergies/Adverse Reactions: Allergies Allergy/AdvReac Type Severity Reaction Status Date / Time ampicillin AdvReac Unknown Verified 08/01/21 23:20 ciprofloxacin [From Cipro] AdvReac Unknown Verified 08/01/21 23:20 - Social History Does the pt smoke?: No Smoking Status: Never smoker Does the pt drink ETOH?: No Does the pt have substance abuse?: No - Immunizations Immunizations are current?: Yes - POLST Patient has POLST: Yes PD ED PE NORMAL - Vitals Vital signs reviewed: Yes - General General: No acute distress, Well developed/nourished, Other (AOX2) - HEENT HEENT: Atraumatic, PERRL, EOMI, Moist mucous membranes, Pharynx benign, Other (1cm superficial well approximated lac to midforehead. head otherwise atraumatic. ) - Neck Neck: No bony TTP - Cardiac Cardiac: RRR - Respiratory Respiratory: No respiratory distress, Clear bilaterally - Abdomen Abdomen: Non tender, Non distended, Other - Rectal Rectal: Other (no sacral decubitus) - Back Back: No spinal TTP, Other (no stepoff or deformity. spinal stimulator palpable along lumbar spine. paraplegic below L6/7) - Derm Derm: Normal color, Warm and dry - Extremities Extremities: Other (pelvis stable. 2+ BL DP pulses. paraplegic. 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 CT wet read negative. patient c/o chronic pain in back and sacral area and requesting pain medication. also concerned about side effect of nausea so requesting reglan. Departure - Departure Disposition: 01 Home, Self Care Clinical Impression: Dizziness, Head injury Condition: Good Instructions: ED Head Injury Closed Follow-Up: Toni Frankel MD [Physician No Access] - Comments: You were seen in the emergency department after hitting your head this morning with symptoms concerning for possible concussion. Your head CT was normal and CT of the sacrum and coccyx did not show any fracture. We did update your tetanus shot (tdap) so you will be up-to-date for the next 10 years. Please monitor your symptoms and follow-up with your neurologist Dr. Toni Frankel. Return to the emergency department if you have any new or worsening symptoms or other concerns.
--- NOTE | 2021-08-01 23:55 | CT Report ---
PROCEDURE: HEAD WO INDICATIONS: head injury this AM (hit forehead on headboard) TECHNIQUE: Noncontrast 4.5 mm thick angled axial sections acquired from the foramen magnum to the vertex. For r adiation dose reduction, the following was used: automated exposure control, adjustment of mA and/or kV according to patient size. COMPARISON: None. FINDINGS: Image quality: Excellent. CSF spaces: Basal cisterns are patent. No extra-axial fluid collections. Ventricles are normal in size and shape. Brain: No midline shift. No intracranial masses or hemorrhage. Hare-white matter interface is norm al. Skull and face: Calvarium and visualized facial bones are intact, without suspicious lesions. Sinuses: Visualized sinuses and mastoids are clear. IMPRESSION: CT head without acute intracranial abnormalities or calvarial fractures. Reviewed by: Anshu Robertson MD on 08/01/2021 11:54 PM PDT Approved by: Anshu Robertson MD on 08/01/2021 11:54 PM PDT Station ID: [id number]
[2021-08-01] MEDS ORDERED: METOCLOPRAMIDE 10 MG/2 ML VIAL IVP STA (23:57)
[2021-08-01] MEDS ORDERED: MORPHINE 2 MG/ML CARPUJECT IVP STA (23:57)
[2021-08-02 00:45] VITALS: BP 117/74
--- NOTE | 2021-08-02 00:49 | XRAY Report ---
PROCEDURE: Sacrum/Coccyx INDICATIONS: 3 views - interval follow up study TECHNIQUE: 3 views of the sacrum and coccyx acquired. COMPARISON: 07/27/[address] abdomen/pelvis dated 06/29/2020 FINDINGS: Bones: No acute or subacute fractures or dislocations. Visualized sacral ala appear intact. No suspi cious bony lesions. Stable appearance and alignment of the sacrum and coccyx compared to recent radi ographs as well as CT dated 06/29/2020. Soft tissues: Visualized bowel gas pattern is normal. No suspicious soft tissue densities. IMPRESSION: Sacrum/coccyx without acute or subacute fracture. If there is continued clinical concern for pathology or occult fracture, consider follow-up imaging w ith advanced imaging (CT, MRI, bone scan) if symptoms persist. Reviewed by: Anshu Robertson MD on 08/02/2021 12:47 AM PDT Approved by: Anshu Robertson MD on 08/02/2021 12:47 AM PDT Station ID: [id number]
[2021-08-02] MEDS ORDERED: TETANUS/DIPHTHERIA/PERTUSSIS 0.5 ML SYRINGE IM ONE (00:58)
[2021-08-02 01:00] LABS: MUDS CUTOFF CONCENTRATIONS CUTOFF CONC BELOW:
[2021-08-02 01:02] LABS: BILIRUBIN,URINE NEGATIVE (NEGATIVE); GLUCOSE, URINE (UA) NEGATIVE (NEGATIVE); KETONES,URINE (UA) NEGATIVE (NEGATIVE); LEUKOCYTE ESTERASE, URINE NEGATIVE (NEGATIVE); NITRITE,URINE NEGATIVE (NEGATIVE); OCCULT BLOOD,URINE NEGATIVE (NEGATIVE); PH,URINE 6.5 PH (5.0-7.5); PROTEIN,URINE NEGATIVE (NEGATIVE); UROBILINOGEN,URINE 0.2 (NORMAL) E.U./dL (NORMAL)
[2021-08-02 01:07] LABS: CLARITY,URINE CLEAR (CLEAR)
[2021-08-02 01:14] LABS: BACTERIA,URINE None Seen /HPF (None Seen); RBC,URINE 0-5 /HPF (0-5); SQUAMOUS EPITHELIAL CELL,UR NONE SEEN (<= Few); WBC,URINE 0-3 /HPF (0-3)
[2021-08-02 01:15] LABS: AMPHETAMINE SCREEN,URINE NEGATIVE (NEGATIVE); BARBITURATE SCREEN,UR NEGATIVE (NEGATIVE); BENZODIAZEPINES SCREEN, URINE POSITIVE (NEGATIVE); COCAINE SCREEN URINE NEGATIVE (NEGATIVE); METHADONE SCREEN, URINE NEGATIVE (NEGATIVE); METHAMPHETAMINES SCREEN, URINE NEGATIVE (NEGATIVE); OPIATE SCREEN, URINE POSITIVE (NEGATIVE); OXYCODONE SCREEN, URINE POSITIVE (NEGATIVE); PROPOXYPHENE SCREEN, URINE NEGATIVE (NEGATIVE); THC CANNABINOID SCREEN, URINE POSITIVE (NEGATIVE); TRICYCLIC ANTIDEPRESSANT,URINE NEGATIVE (NEGATIVE)
== END 2021-08-02 01:12 | disposition home or self-care (01) ==
LOC: EDSEX → EDUNIT# → ED 23:08
DX: S09.90XA Unspecified injury of head, initial encounter (principal); R42 Dizziness and giddiness; S01.81XA Laceration without foreign body of other part of head, initial encounter; W22.09XA Striking against other stationary object, initial encounter; Y92.003 Bedroom of unspecified non-institutional (private) residence as the place of occurrence of the external cause; M53.3 Sacrococcygeal disorders, not elsewhere classified; Z23 Encounter for immunization; G61.81 Chronic inflammatory demyelinating polyneuritis; G82.20 Paraplegia, unspecified; R41.3 Other amnesia; H91.91 Unspecified hearing loss, right ear; F32.9 Major depressive disorder, single episode, unspecified
CPT/HCPCS: 70450; 72220; 80306; 81001; 90471; 90715; 96374; 96375; 99283; 99284; J2765; 87086

== ENCOUNTER 2021-08-03 13:31 | Outpatient (CLI) | payer OTHER | END 2021-08-03 13:32 | disposition critical access hospital (66) | LOC: EMS 13:31 | DX: T40.2X2A Poisoning by other opioids, intentional self-harm, initial encounter (principal); T42.4X2A Poisoning by benzodiazepines, intentional self-harm, initial encounter; R46.4 Slowness and poor responsiveness; R11.10 Vomiting, unspecified; R06.9 Unspecified abnormalities of breathing | CPT/HCPCS: A0425; A0427 ==

== ENCOUNTER 2021-08-03 14:07 | Emergency (ER) | payer OTHER ==
--- NOTE | 2021-08-03 14:31 | ED Physician Documentation ---
History of Present Illness - Stated complaint Stated Complaint: OD - Chief complaint Chief Complaint: Critical Care - Additonal information Additional information: 36-year-old male was brought to the emergency department for evaluation after an intentional overdose. He took an unknown quantity of oxycodone as well as Valium. He had been in communication with his mom via phone and text messaging letting him know of his intentions. She was ultimately able to locate the patient barricaded in his apartment. When she gained entrance that she found him to be somnolent and with a decreasing heart rate. She did give him 2 doses of Narcan intranasally which did improve his mentation. EMS was summoned and he was transported here. 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 He was seen in this emergency department 2 days ago after a fall from the wheelchair in which he struck his head. He ultimately had negative CT imaging. This patient does report to me a longstanding history of depression and previous suicide attempt. The patient states to me that he was trying to end his life because he simply does not feel good. Review of Systems Constitutional: denies: Fever, Chills Throat: reports: Reviewed and negative Cardiac: reports: Reviewed and negative Respiratory: reports: Reviewed and negative Musculoskeletal: reports: Other (Chronic pain secondary to CIDP) Psychiatric: reports: Depressed, Suicidal Endocrine: reports: Reviewed and negative PD PAST MEDICAL HISTORY - Past Medical History Cardiovascular: None Respiratory: None Endocrine/Autoimmune: None GI: GERD, Other : Incontinence HEENT: None Psych: Depression Musculoskeletal: Other Derm: None - Past Surgical History Past Surgical History: Yes Ortho: Arthroscopic surgery - Present Medications Home Medications: Ambulatory Orders Medication Instructions Recorded Confirmed Cholecalciferol (Vitamin D3) 5,000 units PO DAILY 04/03/14 12/24/16 [Vitamin D3] OXcarbazepine [Trileptal] 300 mg PO BID 04/03/14 12/24/16 Ondansetron [Zofran Odt] 4 - 8 mg PO .BID-QID 04/03/14 12/24/16 Tizanidine HCl [Zanaflex] 4 mg PO DAILY 04/03/14 12/24/16 Docusate Sodium 100Mg Capsule 200 mg PO DAILY PRN 09/15/15 12/24/16 [Colace 100Mg Capsule] Naltrexone HCl 4.5 mg PO DAILY 09/15/15 12/24/16 Senna [Senokot] 8.6 mg PO DAILY 09/15/15 12/24/16 dronabinoL [Marinol] 5 mg PO TID 09/15/15 12/24/16 Cyanocobalamin (Vitamin B-12) 1,000 mcg PO DAILY 12/24/16 12/24/16 [Vitamin B-12] Folic Acid 0.8 mg PO DAILY 12/24/16 12/24/16 Phosphatidyl Serine 100 mg PO DAILY 12/24/16 12/24/16 [Phosphatidylserine] Saccharomyces Boulardii [Florastor] 250 mg PO DAILY 12/24/16 12/24/16 Tizanidine HCl [Zanaflex] 4 mg PO DAILY@1700 12/24/16 12/24/16 Tizanidine HCl [Zanaflex] 8 mg PO QPM 12/24/16 12/24/16 polyethylene glycoL 3350 [Miralax] 17 gm PO .Q1-2DAYS 12/24/16 12/24/16 Hydrocortisone Acetate [Anucort-Hc] 25 mg RC DAILY #5 supp.rect 03/13/18 Benzonatate [Tessalon] 200 mg PO TID PRN #30 cap 05/28/21 Cetirizine HCl/Pseudoephedrine 1 each PO BID PRN #30 ea 05/28/21 [Zyrtec-D Tablet] Galcanezumab-Gnlm [Emgality] 120 mg SQ 08/03/21 08/03/21 Oxycodone HCl 10 mg ORAL BID PRN 08/03/21 08/03/21 Promethazine HCl [Promethegan] 25 mg WA DAILY PRN 08/03/21 08/03/21 Sumatriptan Inj [Imitrex Inj] 6 mg SUBQ ONCE 08/03/21 08/03/21 diazePAM [Valium] 5 - 10 mg PO QID PRN 08/03/21 08/03/21 - Allergies Allergies/Adverse Reactions: Allergies Allergy/AdvReac Type Severity Reaction Status Date / Time ampicillin AdvReac Unknown Verified 08/01/21 23:20 ciprofloxacin [From Cipro] AdvReac Unknown Verified 08/01/21 23:20 - Social History Does the pt smoke?: No Smoking Status: Never smoker Does the pt drink ETOH?: No Does the pt have substance abuse?: No - Immunizations Immunizations are current?: Yes - POLST Patient has POLST: Yes PD ED PE EXPANDED - General General: No acute distress, Well developed/nourished, Lethargic - Neck Neck: Supple w/out meningeal sx - Cardiac Cardiac: Regular Rate, Radial strong equal, Pedal strong equal, Cap refill < 2 sec - Respiratory Respiratory: Clear to ausultation ceferino. No: Distress, Labored - Abdomen Abdomen: Normal Bowel sounds. No: Tender to palpation - Derm Derm: Normal color, Warm and dry, Other (superficial abrasion bridge of nose). No: Rash - Extremities Extremities: Normal. No: Deformity, Tenderness - Neuro Neuro: Alert and Oriented X 3, CNII-XII intact, Cerebellar nl, Normal finger nose, Normal speech, Other (Paraplegia at T7-T8 level bilateral lower extremities.) - GCS Eye Opening: Spontaneous Motor: Obeys Commands Verbal: Oriented Total: 15 - Psych Psych: Depressed, Suicidal, Agitated, Combative, Other (initially on presentation, lethargic affect, but then pt became awake, irate and labile of mood. angry demanding to leave the ED) Results - Vitals Vitals: Vital Signs - 24 hr 08/03/21 08/03/21 08/03/21 14:07 15:11 15:30 Temperature 37.2 C Heart Rate 94 80 94 Respiratory 16 19 Rate Blood Pressure 116/76 105/73 115/72 O2 Saturation 97 99 08/03/21 08/03/21 08/03/21 17:49 19:06 19:34 Temperature 36.8 C Heart Rate 78 90 99 Respiratory 14 15 17 Rate Blood Pressure 115/91 H 112/80 117/88 H O2 Saturation 97 96 95 08/03/21 08/03/21 08/03/21 20:02 20:59 21:05 Temperature Heart Rate 94 91 87 Respiratory 19 19 16 Rate Blood Pressure 118/89 H 115/77 114/83 H O2 Saturation 98 95 95 08/03/21 08/03/21 08/03/21 21:34 22:00 22:30 Temperature 36.9 C Heart Rate 100 100 93 Respiratory 14 18 14 Rate Blood Pressure 112/85 H 116/90 H 121/74 O2 Saturation 96 99 96 08/03/21 08/03/21 23:00 23:30 Temperature 36.8 C Heart Rate 90 88 Respiratory 14 16 Rate Blood Pressure 120/72 122/74 O2 Saturation 98 98 Oxygen O2 Source Room air - EKG (time done) 1411 Rate: Rate (enter#) (90) Rhythm: NSR Admire: Normal Intervals: Normal WA QRS: Normal Ischemia: Normal ST segments Compare to prior EKG: Unchanged from prior EKG Computer interpretation: Agree with computer - Labs Labs: Laboratory Tests 08/03/21 08/03/21 08/03/21 14:29 14:29 14:29 WBC 9.1 RBC 4.92 Hgb 15.7 Hct 45.5 MCV 92.5 MCH 31.9 H MCHC 34.5 RDW 13.7 Plt Count 219 MPV 9.4 Neut # (Auto) 7.6 H Lymph # (Auto) 0.7 L Taney # (Auto) 0.6 Eos # (Auto) 0.1 Baso # (Auto) 0.1 Absolute Nucleated RBC 0.00 Nucleated RBC % 0.0 Sodium 141 Potassium 4.1 Chloride 99 L Carbon Dioxide 31 Anion Gap 11.0 BUN 10 Creatinine 0.9 Estimated GFR (MDRD) 95 Glucose 91 Calcium 9.8 Total Bilirubin 1.2 H AST 22 ALT 25 Alkaline Phosphatase 47 Total Protein 7.7 Albumin 4.7 Globulin 3.0 Albumin/Globulin Ratio 1.6 Lipase 25 TSH 0.86 Urine Color Urine Clarity Urine pH Ur Specific [place] Urine Protein Urine Glucose (UA) Urine Ketones Urine Occult Blood Urine Nitrite Urine Bilirubin Urine Urobilinogen Ur Leukocyte Esterase Ur Microscopic Review Urine Culture Comments Nasal Adenovirus (PCR) Nasal B. parapertussis DNA (PCR) Nasal Coronavir 229E PCR Nasal Coronavir HKU1 PCR Nasal Coronavir NL63 PCR Nasal Coronavir OC43 PCR Nasal Enterovir/Rhinovir PCR Nasal Influenza B PCR Nasal Influenza A PCR Nasal Parainfluen 1 PCR Nasal Parainfluen 2 PCR Nasal Parainfluen 3 PCR Nasal Parainfluen 4 PCR Nasal RSV (PCR) Nasal B.pertussis DNA PCR Nasal C.pneumoniae (PCR) Tyler Human Metapneumo PCR Nasal M.pneumoniae (PCR) Nasal SARS-CoV-2 (PCR) Salicylates < 6.0 Urine Opiates Screen Ur Oxycodone Screen Urine Methadone Screen Ur Propoxyphene Screen Acetaminophen < 10 L Ur Barbiturates Screen Ur Tricyclics Screen Ur Phencyclidine Scrn Ur Amphetamine Screen U Methamphetamines Scrn U Benzodiazepines Scrn Urine Cocaine Screen U Cannabinoids Screen Ethyl Alcohol < 5.0 08/03/21 08/03/21 14:40 14:40 WBC RBC Hgb Hct MCV MCH MCHC RDW Plt Count MPV Neut # (Auto) Lymph # (Auto) Taney # (Auto) Eos # (Auto) Baso # (Auto) Absolute Nucleated RBC Nucleated RBC % Sodium Potassium Chloride Carbon Dioxide Anion Gap BUN Creatinine Estimated GFR (MDRD) Glucose Calcium Total Bilirubin AST ALT Alkaline Phosphatase Total Protein Albumin Globulin Albumin/Globulin Ratio Lipase TSH Urine Color YELLOW Urine Clarity CLEAR Urine pH 8.0 H Ur Specific [place] 1.010 Urine Protein NEGATIVE Urine Glucose (UA) NEGATIVE Urine Ketones TRACE Urine Occult Blood NEGATIVE Urine Nitrite NEGATIVE Urine Bilirubin NEGATIVE Urine Urobilinogen 0.2 (NORMAL) Ur Leukocyte Esterase NEGATIVE Ur Microscopic Review NOT INDICATED Urine Culture Comments NOT INDICATED Nasal Adenovirus (PCR) NOT DETECTED Nasal B. parapertussis DNA (PCR) NOT DETECTED Nasal Coronavir 229E PCR NOT DETECTED Nasal Coronavir HKU1 PCR NOT DETECTED Nasal Coronavir NL63 PCR NOT DETECTED Nasal Coronavir OC43 PCR NOT DETECTED Nasal Enterovir/Rhinovir PCR NOT DETECTED Nasal Influenza B PCR NOT DETECTED Nasal Influenza A PCR NOT DETECTED Nasal Parainfluen 1 PCR NOT DETECTED Nasal Parainfluen 2 PCR NOT DETECTED Nasal Parainfluen 3 PCR NOT DETECTED Nasal Parainfluen 4 PCR NOT DETECTED Nasal RSV (PCR) NOT DETECTED Nasal B.pertussis DNA PCR NOT DETECTED Nasal C.pneumoniae (PCR) NOT DETECTED Tyler Human Metapneumo PCR NOT DETECTED Nasal M.pneumoniae (PCR) NOT DETECTED Nasal SARS-CoV-2 (PCR) NOT DETECTED Salicylates Urine Opiates Screen POSITIVE H Ur Oxycodone Screen POSITIVE H Urine Methadone Screen NEGATIVE Ur Propoxyphene Screen NEGATIVE Acetaminophen Ur Barbiturates Screen NEGATIVE Ur Tricyclics Screen NEGATIVE Ur Phencyclidine Scrn NEGATIVE Ur Amphetamine Screen NEGATIVE U Methamphetamines Scrn NEGATIVE U Benzodiazepines Scrn POSITIVE H Urine Cocaine Screen NEGATIVE U Cannabinoids Screen POSITIVE H Ethyl Alcohol PD MEDICAL DECISION MAKING - ED course Complexity details: reviewed results, d/w patient, d/w family ED course: 36-year-old male presents emergency department for evaluation after an intentional suicide attempt. He did take an unknown amount of oxycodone as well as Valium. He did receive intranasal Narcan from his mother at the scene. On presentation this gentleman is mildly lethargic but responds and arouses easily. His airway is well protected. No hypoxia. Poison control has been contacted and they recommend 6 to 8 hours of observation from the time of the last narcan administration. Screening labs as well as routine urine toxicology will be obtained however once he is medically cleared he will require social work or DCR evaluation given the seriousness of this suicide attempt. 1545: Patient's mom brought a wheelchair to the bedside and patient got himself into the wheelchair. Patient was attempting to leave the emergency department in haste and AGAINST MEDICAL ADVICE because he was upset that his girlfriend could not visit secondary to COVID-19 restrictions. Patient's mom became very irate and angry and a small shouting match ensued within the hallway. Patient's mom was ultimately asked to leave the emergency department. Because of the nature of the patient's overdose attempt I did not feel it was appropriate to allow him to leave AGAINST MEDICAL ADVICE and felt that DCR evaluation would be necessary. Patient was able to be verbally deescalated. He agreed to return to the bedside and was placed in paper scrubs. We will ask DCR to continue evaluation for this overdose/suicide attempt. 2129. I have spoken with the DCR. She is concerned that placement may be difficult for the patient secondary to his wheelchair however she will continue with a formal evaluation. I have prescribed the patient's tizanidine, oxycarbamazepine as well as his Zofran. I declined to prescribe the Marinol. Pt remains quite fixated that his overdose attempt may be related to his concussion after a fall 2 days ago. He also feels he needs more extensive neurological evaluation. he is requesting transfer to [facility]. I explained that there was no basis for transfer to [facility] at this time. I felt it was important that he continue with mental health evaluation with DCR. His girlfriend Ty is at the bedside and has been helpful in redirecting patient's mood and behaviors. I did repat a brief focused neurological evaluation and no abnormal findings were found. Patient will be signed out to my nighttime colleague Dr. De Guzman pending DCR evaluation. Departure - Departure Disposition: 01 Home, Self Care Clinical Impression: Intentional overdose of drug in tablet form Condition: Stable Instructions: Concussion [place], Depression Know Signs Sx Comments: You were seen in the emergency department for evaluation after an intentional overdose. After extensive evaluation and monitoring in the emergency department and evaluation by our [facility] mental health social work specialist, we are recommending inpatient psychiatric treatment. However, I am not going to detain you against your will given that you and your family feel you will be safe to go home tonight, do not feel suicidal at present, and would like to follow up for psychiatric evaluation at [facility] tomorrow. Please return to the emergency department immediately if you change your mind and we will arrange inpatient psychiatric care. Please also return immediately if you have any new or worsening mental health or brain related symptoms. Discharge Date/Time: 08/04/21 00:11
[2021-08-03 14:35] LABS: BASOPHILS # (AUTO) 0.1 10^3/uL (0.0-0.1); BASOPHILS % (AUTO) 0.7 %; EOSINOPHILS # (AUTO) 0.1 10^3/uL (0.0-0.7); EOSINOPHILS % (AUTO) 0.6 %; HCT - HEMATOCRIT 45.5 % (42.0-52.0); HGB - HEMOGLOBIN 15.7 g/dL (14.0-18.0); LYMPHOCYTES # (AUTO) 0.7 10^3/uL (1.5-3.5); LYMPHOCYTES % (AUTO) 8.2 %; MEAN CORPUSCULAR HEMOGLOBIN 31.9 pg (27.0-31.0); MEAN CORPUSCULAR HGB CONC 34.5 g/dL (32.0-36.0); MEAN CORPUSCULAR VOLUME 92.5 fL (80.0-94.0); MEAN PLATELET VOLUME 9.4 fL (7.4-11.4); MONOCYTES # (AUTO) 0.6 10^3/uL (0.0-1.0); MONOCYTES % (AUTO) 6.4 %; NEUTROPHILS # (AUTO) 7.6 10^3/uL (1.5-6.6); NEUTROPHILS % (AUTO) 83.9 %; PLT - PLATELET COUNT 219 10^3/uL (130-450); RED BLOOD COUNT 4.92 10^6/uL (4.70-6.10); RED CELL DISTRIBUTION WIDTH 13.7 % (12.0-15.0); WHITE BLOOD COUNT 9.1 x10^3/uL (4.8-10.8)
--- NOTE | 2021-08-03 14:38 | XRAY Report ---
PROCEDURE: Chest 1 View X-Ray INDICATIONS: Chest pain TECHNIQUE: One view of the chest was acquired. COMPARISON: 05/28/2021 FINDINGS: Surgical changes and devices: Cervical and thoracolumbar stimulator leads partially visualized. Lungs and pleura: No pleural effusions or pneumothorax. Lungs are clear. Mediastinum: Mediastinal contours appear normal. Heart size is normal. Bones and chest wall: No suspicious bony lesions. Overlying soft tissues appear unremarkable. IMPRESSION: No acute cardiopulmonary process demonstrated radiographically. Reviewed by: Fermin Ventura MD on 08/03/2021 2:36 PM PDT Approved by: Fermin Ventura MD on 08/03/2021 2:36 PM PDT Station ID: [id number]
[2021-08-03 14:45] LABS: MUDS CUTOFF CONCENTRATIONS CUTOFF CONC BELOW:
[2021-08-03 14:48] LABS: BILIRUBIN,URINE NEGATIVE (NEGATIVE); GLUCOSE, URINE (UA) NEGATIVE (NEGATIVE); KETONES,URINE (UA) TRACE mg/dL (NEGATIVE); LEUKOCYTE ESTERASE, URINE NEGATIVE (NEGATIVE); NITRITE,URINE NEGATIVE (NEGATIVE); OCCULT BLOOD,URINE NEGATIVE (NEGATIVE); PROTEIN,URINE NEGATIVE (NEGATIVE); UROBILINOGEN,URINE 0.2 (NORMAL) E.U./dL (NORMAL)
[2021-08-03 14:50] LABS: CLARITY,URINE CLEAR (CLEAR)
[2021-08-03 14:51] LABS: ACETAMINOPHEN < 10 ug/mL (10-30); ALBUMIN 4.7 g/dL (3.2-5.5); ALBUMIN/GLOBULIN RATIO 1.6 (1.0-2.2); ALKALINE PHOSPHATASE 47 IU/L (42-121); ALT ALANINE AMINOTRANSFERASE 25 IU/L (10-60); AST ASPARTATE AMINOTRANSFERASE 22 IU/L (10-42); BILIRUBIN,TOTAL 1.2 mg/dL (0.2-1.0); BUN - BLOOD UREA NITROGEN 10 mg/dL (6-20); CALCIUM 9.8 mg/dL (8.5-10.3); CARBON DIOXIDE - CO2 31 mmol/L (21-32); CHLORIDE 99 mmol/L (101-111); CREATININE 0.9 mg/dL (0.6-1.2); ETOH - ETHANOL < 5.0 mg/dL; GFR - MDRD 95 (>89); GLUCOSE 91 mg/dL (70-100); LIPASE 25 U/L (22-51); POTASSIUM 4.1 mmol/L (3.5-5.0); SALICYLATE < 6.0 mg/dL; SODIUM 141 mmol/L (135-145); TOTAL PROTEIN 7.7 g/dL (6.7-8.2)
[2021-08-03 15:01] LABS: AMPHETAMINE SCREEN,URINE NEGATIVE (NEGATIVE); BARBITURATE SCREEN,UR NEGATIVE (NEGATIVE); BENZODIAZEPINES SCREEN, URINE POSITIVE (NEGATIVE); COCAINE SCREEN URINE NEGATIVE (NEGATIVE); METHADONE SCREEN, URINE NEGATIVE (NEGATIVE); METHAMPHETAMINES SCREEN, URINE NEGATIVE (NEGATIVE); OPIATE SCREEN, URINE POSITIVE (NEGATIVE); OXYCODONE SCREEN, URINE POSITIVE (NEGATIVE); PROPOXYPHENE SCREEN, URINE NEGATIVE (NEGATIVE); THC CANNABINOID SCREEN, URINE POSITIVE (NEGATIVE); TRICYCLIC ANTIDEPRESSANT,URINE NEGATIVE (NEGATIVE)
[2021-08-03] MEDS ORDERED: SODIUM CHLORIDE 0.9% 1,000 ML IV STA (15:44)
[2021-08-03 16:27] LABS: B. PARAPERTUSSIS- RESP PCR PAN NOT DETECTED; B. PERTUSSIS- RESP PCR PANEL NOT DETECTED; C. PNEUMONIAE- RESP PCR PANEL NOT DETECTED; CORONAVIRUS 229E-RESP PCR NOT DETECTED; CORONAVIRUS HKU1-RESP PCR NOT DETECTED; CORONAVIRUS NL63-RESP PCR NOT DETECTED; CORONAVIRUS OC43-RESP PCR NOT DETECTED; HUMAN METAPNEUMOVIRUS NOT DETECTED; INFLUENZA A- RESP PCR PANEL NOT DETECTED; INFLUENZA B - RESP PCR PANEL NOT DETECTED; M. PNEUMONIAE- RESP PCR PANEL NOT DETECTED; PARAINFLUENZA VIRUS 1 NOT DETECTED; PARAINFLUENZA VIRUS 2 NOT DETECTED; PARAINFLUENZA VIRUS 3 NOT DETECTED; PARAINFLUENZA VIRUS 4 NOT DETECTED; RHINOVIRUS/ENTEROVIRUS NOT DETECTED; RSV- RESP PCR PANEL NOT DETECTED; SARS-CoV-2 -RESP PCR PANEL NOT DETECTED
[2021-08-03] MEDS ORDERED: ONDANSETRON 4 MG/2 ML VIAL IVP STA (17:28)
[2021-08-03] MEDS ORDERED: tiZANidine 4 MG TABLET PO PRN (21:38)
[2021-08-03] MEDS ORDERED: ONDANSETRON ODT 4 MG TABLET TL STA (21:39)
[2021-08-03] MEDS ORDERED: OXcarbazepine 150 MG TABLET PO STA (21:39)
--- NOTE | 2021-08-03 23:50 | ED Physician Documentation ---
ED Addendum - Addendum Addendum: 08/03/21 23:32 d/w DCR who states there is an inpatient bed in [place] with psychiatric and paraplegic capabilities but that patient refused admission there. She states she thinks he will be safe for discharge and follow up at [facility] in AM where he and his family particularly want to go for neurologic and psychiatric eval. Talked with significant other Ty who states she feels the patient is safe to go home tonight and she will lock up any pills. no guns in the home. patient co ntracts for safety. I further d/w mother who states patient has been more and more agitated. This escalated into an argument with patient's girlfriend Ty who said that she was going to go stay with a friend and that she was going to break up with him and this prompted him to take a mixture of pain pills. Mother would also like for patient to f/u at [facility] tomorrow and is not open to IPP hospitalization. I d/w her and with Ty that I highly recommend mental health hospitalization at [facility] where there is a bed available tomorrow morning and have serious concerns about his mental health but am unable to keep him against his will and against the wishes of his family. Patient himself reinforces that he wants to go to [facility] tomorrow and does not want to go to [place]. He is focused on his neurologic symptoms as a cause for his behavior. I conducted a neurologic exam and find no acute deficits and advised him that repeat CT head at this time is unlikely to uncover acute bleeding and do not want to expose him to more radiation. Also d/w mother and significant other who voice understanding. Strict return precautions reinforced. 08/04/21 00:09 08/04/21 00:14 Impression 1. drug overdose 2. depression 3. concussion
[2021-08-03 23:51] VITALS: BP 122/74
== END 2021-08-04 00:11 | disposition home or self-care (01) ==
LOC: EDUNIT# → ED 14:07
DX: T40.2X2A Poisoning by other opioids, intentional self-harm, initial encounter (principal); T42.4X2A Poisoning by benzodiazepines, intentional self-harm, initial encounter; F32.9 Major depressive disorder, single episode, unspecified; S06.0X9D Concussion with loss of consciousness of unspecified duration, subsequent encounter; W05.0XXD Fall from non-moving wheelchair, subsequent encounter; G61.81 Chronic inflammatory demyelinating polyneuritis; G82.20 Paraplegia, unspecified; Z20.822 Contact with and (suspected) exposure to COVID-19
CPT/HCPCS: 0202U; 36415; 71045; 80053; 80306; 80307; 80320; 80329; 81003; 83690; 84443; 85025; 93005; 96361; 96374; 99284; 99285; A9270; Q0162; 81001; 87086

== ENCOUNTER 2021-10-12 17:07 | Outpatient (CLI) | payer OTHER | END 2021-10-12 17:08 | disposition critical access hospital (66) | LOC: EMS 17:07 | DX: R11.2 Nausea with vomiting, unspecified (principal); R19.7 Diarrhea, unspecified; K92.1 Melena; R10.9 Unspecified abdominal pain | CPT/HCPCS: A0425; A0427 ==

== ENCOUNTER 2021-10-12 17:44 | Emergency (ER) | payer OTHER ==
[2021-10-12] MEDS ORDERED: SODIUM CHLORIDE 0.9% 1,000 ML IV STA ×2 (18:00→18:27)
[2021-10-12 18:12] LABS: BASOPHILS # (AUTO) 0.1 10^3/uL (0.0-0.1); BASOPHILS % (AUTO) 0.4 %; EOSINOPHILS % (AUTO) 0.1 %; HCT - HEMATOCRIT 49.4 % (42.0-52.0); HGB - HEMOGLOBIN 17.7 g/dL (14.0-18.0); LYMPHOCYTES # (AUTO) 0.6 10^3/uL (1.5-3.5); LYMPHOCYTES % (AUTO) 5.7 %; MEAN CORPUSCULAR HGB CONC 35.8 g/dL (32.0-36.0); MEAN PLATELET VOLUME 10.3 fL (7.4-11.4); MONOCYTES # (AUTO) 0.5 10^3/uL (0.0-1.0); MONOCYTES % (AUTO) 4.4 %; NEUTROPHILS # (AUTO) 10.1 10^3/uL (1.5-6.6); PLT - PLATELET COUNT 199 10^3/uL (130-450); RED BLOOD COUNT 5.37 10^6/uL (4.70-6.10); WHITE BLOOD COUNT 11.3 x10^3/uL (4.8-10.8)
[2021-10-12 18:25] LABS: ALBUMIN 4.3 g/dL (3.2-5.5); ALBUMIN/GLOBULIN RATIO 1.3 (1.0-2.2); BILIRUBIN,TOTAL 0.8 mg/dL (0.2-1.0); CALCIUM 9.8 mg/dL (8.5-10.3); CREATININE 1.1 mg/dL (0.6-1.2); POTASSIUM 3.5 mmol/L (3.5-5.0); TOTAL PROTEIN 7.7 g/dL (6.7-8.2)
[2021-10-12] MEDS ORDERED: HYDROmorphone 1 MG/ML CARPUJECT IVP STA ×2 (18:26→20:13)
[2021-10-12] MEDS ORDERED: DROPERIDOL 5 MG/2 ML VIAL IVP STA (18:27)
[2021-10-12] MEDS ORDERED: IOPAMIDOL-300 100 ML VIAL ONE (19:20)
[2021-10-12] MEDS ORDERED: IOPAMIDOL-300 100 ML VIAL IVP ONE (20:03)
--- NOTE | 2021-10-12 20:12 | CT Report ---
PROCEDURE: HEAD WO INDICATIONS: head injury 2 months ago, vomiting TECHNIQUE: Noncontrast 4.5 mm thick angled axial sections acquired from the foramen magnum to the vertex. For r adiation dose reduction, the following was used: automated exposure control, adjustment of mA and/or kV according to patient size. COMPARISON: 08/01/2021. FINDINGS: Image quality: Excellent. CSF spaces: Basal cisterns are patent. No extra-axial fluid collections. Ventricles are normal in size and shape. Brain: No intracranial hemorrhage, mass, or mass effect. Hare-white matter interface appears preser alexia. Skull and face: Calvarium and visualized facial bones are intact, without suspicious lesions. Sinuses: Visualized sinuses and mastoids are clear. IMPRESSION: 1. No acute intracranial abnormality. Reviewed by: Luiz Schilling MD on 10/12/2021 7:11 PM [facility] Approved by: Luiz Schilling MD on 10/12/2021 7:11 PM [facility] Station ID: [id number]
[2021-10-12] MEDS ORDERED: diazePAM INJ 5 MG/ML SYRINGE IVP STA (20:14)
[2021-10-12 20:29] LABS: MUDS CUTOFF CONCENTRATIONS CUTOFF CONC BELOW:
--- NOTE | 2021-10-12 20:30 | CT Report ---
PROCEDURE: Abdomen/Pelvis W INDICATIONS: diffuse abd pain, vomiting CONTRAST: IV CONTRAST: Isovue 300 ml: 100 PO CONTRAST: *NO PO CONTRAST TECHNIQUE: After the administration of intravenous contrast, 5 mm thick sections acquired from the diaphragms to the symphysis. 5 mm thick coronal and sagittal reformats were acquired. For radiation dose reducti on, the following was used: automated exposure control, adjustment of mA and/or kV according to ad ent size. COMPARISON: None. FINDINGS: Image quality: Excellent. ABDOMEN: Lung bases: Lung bases are clear. Heart size is normal. There is a small hiatal hernia. Solid organs: Evaluation of the liver demonstrates no focal hepatic lesions. Gallbladder demonstrates multiple noncalcified gallstones. No wall thickening or pericholecystic fluid. Biliary system is non dilated. The spleen is normal in size. Pancreas enhances normally without peripancreatic fat strand ing or fluid collections. No adrenal nodules. Kidneys demonstrate no hydronephrosis. Peritoneum and bowel: Small bowel loops demonstrate normal wall thickness and caliber. The appendix is normal in appearance. There is mild segmental wall thickening of the transverse, descending, and s igmoid colon suggestive of a colitis. No free fluid or air. Nodes and vessels: No retroperitoneal or mesenteric adenopathy by size criteria. Aorta and inferior vena cava are normal in size. Miscellaneous: No ventral hernias. PELVIS: Genitourinary: Bladder wall thickness is normal. Miscellaneous: There is a right gluteal subcutaneous neurostimulator device with the lead extending superiorly to the level of T11. No inguinal hernias or adenopathy. Bones: No suspicious bony lesions. No vertebral body compression fractures. IMPRESSION: 1. Segmental wall thickening of the distal colon suggestive of an infectious or inflammatory colitis. 2. Small hiatal hernia. 3. Cholelithiasis without CT evidence of cholecystitis. Reviewed by: Luiz Schilling MD on 10/12/2021 7:28 PM [facility] Approved by: Luiz Schilling MD on 10/12/2021 7:28 PM [facility] Station ID: [id number]
[2021-10-12 20:35] LABS: BILIRUBIN,URINE NEGATIVE (NEGATIVE); GLUCOSE, URINE (UA) NEGATIVE (NEGATIVE); KETONES,URINE (UA) 40 mg/dL (NEGATIVE); LEUKOCYTE ESTERASE, URINE NEGATIVE (NEGATIVE); NITRITE,URINE NEGATIVE (NEGATIVE); OCCULT BLOOD,URINE TRACE-INTA (NEGATIVE); PROTEIN,URINE NEGATIVE (NEGATIVE); UROBILINOGEN,URINE 0.2 (NORMAL) E.U./dL (NORMAL)
[2021-10-12 20:37] LABS: CLARITY,URINE CLEAR (CLEAR)
[2021-10-12 20:45] VITALS: BP 103/69
[2021-10-12 20:46] LABS: AMPHETAMINE SCREEN,URINE NEGATIVE (NEGATIVE); BARBITURATE SCREEN,UR NEGATIVE (NEGATIVE); BENZODIAZEPINES SCREEN, URINE POSITIVE (NEGATIVE); COCAINE SCREEN URINE NEGATIVE (NEGATIVE); METHADONE SCREEN, URINE NEGATIVE (NEGATIVE); METHAMPHETAMINES SCREEN, URINE NEGATIVE (NEGATIVE); OPIATE SCREEN, URINE POSITIVE (NEGATIVE); OXYCODONE SCREEN, URINE NEGATIVE (NEGATIVE); PROPOXYPHENE SCREEN, URINE NEGATIVE (NEGATIVE); THC CANNABINOID SCREEN, URINE POSITIVE (NEGATIVE); TRICYCLIC ANTIDEPRESSANT,URINE NEGATIVE (NEGATIVE)
[2021-10-12] MEDS ORDERED: oxyCODONE 5 MG TABLET PO STA (21:41)
--- NOTE | 2021-10-12 21:43 | ED Physician Documentation ---
PD HPI NVD - Stated complaint Stated Complaint: N/V/D - Chief complaint Chief Complaint: Abd Pain - History obtained from History obtained from: Patient - History of Present Illness Timing - onset: How many weeks ago (1) Timing - duration: Weeks (1) Pain level max: 9 Pain level now: 9 Associated symptoms: Abdominal pain Contributing factors: No: Sick contact, Bad food, Travel, Recent antibiotics, Alcohol use, Anticoagulated Improved by: Vomiting Worsened by: Eating - Additonal information Additional information: Patient is a 36-year-old male, T8-T9 incomplete paraplegic. He states that he has had abdominal pain, vomiting, diarrhea, severe for the past 3 days, but started about a week ago. He is on chronic narcotics, benzodiazepines. Has been unable to keep any medications down. Increase in abdominal pain. No fevers. He also states that he had a severe concussion a few months ago and spent about 2 weeks in the hospital. He is concerned that this could be potentially related to that. Review of Systems Ten Systems: 10 systems reviewed and negative Constitutional: denies: Fever, Chills Ears: denies: Ear pain Nose: denies: Rhinorrhea / runny nose, Congestion : denies: Dysuria Skin: denies: Rash Musculoskeletal: denies: Neck pain, Back pain Neurologic: denies: Headache PD PAST MEDICAL HISTORY - Past Medical History Cardiovascular: None Respiratory: None Endocrine/Autoimmune: None GI: GERD, Other : Incontinence HEENT: None Psych: Depression Musculoskeletal: Other Derm: None - Past Surgical History Past Surgical History: Yes Ortho: Arthroscopic surgery - Present Medications Home Medications: Ambulatory Orders Medication Instructions Recorded Confirmed Cholecalciferol (Vitamin D3) 5,000 units PO DAILY 04/03/14 12/24/16 [Vitamin D3] OXcarbazepine [Trileptal] 300 mg PO BID 04/03/14 12/24/16 Ondansetron [Zofran Odt] 4 - 8 mg PO .BID-QID 04/03/14 12/24/16 Tizanidine HCl [Zanaflex] 4 mg PO DAILY 04/03/14 12/24/16 Docusate Sodium 100Mg Capsule 200 mg PO DAILY PRN 09/15/15 12/24/16 [Colace 100Mg Capsule] Naltrexone HCl 4.5 mg PO DAILY 09/15/15 12/24/16 Senna [Senokot] 8.6 mg PO DAILY 09/15/15 12/24/16 dronabinoL [Marinol] 5 mg PO TID 09/15/15 12/24/16 Cyanocobalamin (Vitamin B-12) 1,000 mcg PO DAILY 12/24/16 12/24/16 [Vitamin B-12] Folic Acid 0.8 mg PO DAILY 12/24/16 12/24/16 Phosphatidyl Serine 100 mg PO DAILY 12/24/16 12/24/16 [Phosphatidylserine] Saccharomyces Boulardii [Florastor] 250 mg PO DAILY 12/24/16 12/24/16 Tizanidine HCl [Zanaflex] 4 mg PO DAILY@1700 12/24/16 12/24/16 Tizanidine HCl [Zanaflex] 8 mg PO QPM 12/24/16 12/24/16 polyethylene glycoL 3350 [Miralax] 17 gm PO .Q1-2DAYS 12/24/16 12/24/16 Hydrocortisone Acetate [Anucort-Hc] 25 mg RC DAILY #5 supp.rect 03/13/18 Benzonatate [Tessalon] 200 mg PO TID PRN #30 cap 05/28/21 Cetirizine HCl/Pseudoephedrine 1 each PO BID PRN #30 ea 05/28/21 [Zyrtec-D Tablet] Galcanezumab-Gnlm [Emgality] 120 mg SQ 08/03/21 08/03/21 Oxycodone HCl 10 mg ORAL BID PRN 08/03/21 08/03/21 Promethazine HCl [Promethegan] 25 mg [place] DAILY PRN 08/03/21 08/03/21 Sumatriptan Inj [Imitrex Inj] 6 mg SUBQ ONCE 08/03/21 08/03/21 diazePAM [Valium] 5 - 10 mg PO QID PRN 08/03/21 08/03/21 - Allergies Allergies/Adverse Reactions: Allergies Allergy/AdvReac Type Severity Reaction Status Date / Time ampicillin AdvReac Unknown Verified 10/12/21 17:58 ciprofloxacin [From Cipro] AdvReac Unknown Verified 10/12/21 17:58 - Social History Does the pt smoke?: No Smoking Status: Never smoker Does the pt drink ETOH?: No Does the pt have substance abuse?: No - Immunizations Immunizations are current?: Yes - POLST Patient has POLST: Yes PD ED PE NORMAL - Vitals Vital signs reviewed: Yes - General General: Alert and oriented X 3, Well developed/nourished, Other (appears in pain) - HEENT HEENT: PERRL, Moist mucous membranes - Neck Neck: Supple, no meningeal sign - Cardiac Cardiac: RRR, Strong equal pulses - Respiratory Respiratory: No respiratory distress, Clear bilaterally - Abdomen Abdomen: Soft, Non distended, Other (Diffusely tender palpation. No peritoneal signs) - Back Back: No spinal TTP - Derm Derm: Warm and dry - Extremities Extremities: No calf tenderness / cord - Neuro Neuro: Alert and oriented X 3 - Psych Psych: Normal mood, Normal affect Results - Vitals Vitals: Vital Signs - 24 hr 10/12/21 10/12/21 10/12/21 17:54 18:00 18:08 Temperature 36.1 C L 36.1 C L Heart Rate 72 78 72 Respiratory 20 19 20 Rate Blood Pressure 118/85 H 134/95 H 118/85 H O2 Saturation 100 100 100 10/12/21 10/12/21 10/12/21 19:00 20:03 20:43 Temperature 37.2 C 36.8 C Heart Rate 68 68 94 Respiratory 19 14 12 Rate Blood Pressure 113/65 119/84 H 103/69 O2 Saturation 100 100 99 10/12/21 21:00 Temperature Heart Rate 80 Respiratory 18 Rate Blood Pressure 103/69 O2 Saturation 99 Oxygen O2 Source Room air - Labs Labs: Laboratory Tests 10/12/21 10/12/21 10/12/21 18:07 18:07 20:25 WBC 11.3 H RBC 5.37 Hgb 17.7 Hct 49.4 MCV 92.0 MCH 33.0 H MCHC 35.8 RDW 13.0 Plt Count 199 MPV 10.3 Neut # (Auto) 10.1 H Lymph # (Auto) 0.6 L [place] # (Auto) 0.5 Eos # (Auto) 0.0 Baso # (Auto) 0.1 Absolute Nucleated RBC 0.00 Nucleated RBC % 0.0 Sodium 142 Potassium 3.5 Chloride 103 Carbon Dioxide 25 Anion Gap 14.0 H BUN 8 Creatinine 1.1 Estimated GFR (MDRD) 75 L Glucose 115 H Calcium 9.8 Total Bilirubin 0.8 AST 17 ALT 14 Alkaline Phosphatase 43 Total Protein 7.7 Albumin 4.3 Globulin 3.4 Albumin/Globulin Ratio 1.3 Lipase 27 Urine Color YELLOW Urine Clarity CLEAR Urine pH 8.0 H Ur Specific [place] 1.015 Urine Protein NEGATIVE Urine Glucose (UA) NEGATIVE Urine Ketones 40 H Urine Occult Blood TRACE-INTA Urine Nitrite NEGATIVE Urine Bilirubin NEGATIVE Urine Urobilinogen 0.2 (NORMAL) Ur Leukocyte Esterase NEGATIVE Ur Microscopic Review NOT INDICATED Urine Culture Comments NOT INDICATED Urine Opiates Screen POSITIVE H Ur Oxycodone Screen NEGATIVE Urine Methadone Screen NEGATIVE Ur Propoxyphene Screen NEGATIVE Ur Barbiturates Screen NEGATIVE Ur Tricyclics Screen NEGATIVE Ur Phencyclidine Scrn NEGATIVE Ur Amphetamine Screen NEGATIVE U Methamphetamines Scrn NEGATIVE U Benzodiazepines Scrn POSITIVE H Urine Cocaine Screen NEGATIVE U Cannabinoids Screen POSITIVE H - Rads (name of study) CT abd/pelvis Radiology: Final report received, EMP read contemporaneously, See rad report ct head Radiology: Final report received, EMP read contemporaneously, See rad report (1. No acute intracranial abnormality) PD MEDICAL DECISION MAKING - ED course Complexity details: reviewed results, re-evaluated patient, considered differential, d/w patient ED course: 36-year-old male with vomiting and diarrhea. Appears to be a viral gastroenteritis. He has been unable to keep down his narcotic and benzodiazepine medications. He was given pain medication and Valium IV here. Feels much better. Tolerating p.o. well. He is able to keep pills down here. We will continue supportive care at home and have him return if he worsens. No indication for antibiotics at this time. Patient counseled regarding signs and symptoms for which I believe and urgent re-evaluation would be necessary. Patient with good understanding of and agreement to plan and is comfortable going home at this time This document was made in part using voice recognition software. While efforts are made to proofread this document, sound alike and grammatical errors may occur. IMPRESSION: 1. Segmental wall thickening of the distal colon suggestive of an infectious or inflammatory colitis. 2. Small hiatal hernia. 3. Cholelithiasis without CT evidence of cholecystitis. Departure - Departure Disposition: 01 Home, Self Care Clinical Impression: Viral gastroenteritis Condition: Good Instructions: ED Gastroenteritis Viral Follow-Up: your,doctor in 1 week [Other] Comments: Continue your current medications at home. Please return if you worsen. This appears to be a viral illness at this point. Drink plenty of fluids and rest.
== END 2021-10-12 22:08 | disposition home or self-care (01) ==
LOC: EDUNIT# → ED 17:44
DX: A08.4 Viral intestinal infection, unspecified (principal)
CPT/HCPCS: 36415; 70450; 74177; 80053; 80306; 81003; 83690; 85025; 96374; 96375; 96376; 99284; A9270; J1170; Q9967; 81001; 87086

== ENCOUNTER 2021-10-23 08:16 | Outpatient (CLI) | payer OTHER | END 2021-10-23 08:17 | disposition home or self-care (01) | LOC: LAB.S 08:16 | PROVIDERS: ATTEND Psychiatry & Neurology Neurology | DX: G43.719 Chronic migraine without aura, intractable, without status migrainosus (principal) | CPT/HCPCS: 80183; 81599 ==

== ENCOUNTER 2021-11-05 12:09 | Outpatient (CLI) | payer OTHER ==
[2021-11-05 19:19] LABS: BASOPHILS # (AUTO) 0.1 10^3/uL (0.0-0.1); BASOPHILS % (AUTO) 0.6 %; EOSINOPHILS % (AUTO) 0.4 %; HCT - HEMATOCRIT 47.7 % (42.0-52.0); HGB - HEMOGLOBIN 16.7 g/dL (14.0-18.0); LYMPHOCYTES # (AUTO) 1.2 10^3/uL (1.5-3.5); LYMPHOCYTES % (AUTO) 11.2 %; MEAN CORPUSCULAR HEMOGLOBIN 31.9 pg (27.0-31.0); MEAN CORPUSCULAR VOLUME 91.2 fL (80.0-94.0); MEAN PLATELET VOLUME 11.4 fL (7.4-11.4); MONOCYTES # (AUTO) 0.5 10^3/uL (0.0-1.0); MONOCYTES % (AUTO) 5.1 %; NEUTROPHILS # (AUTO) 8.7 10^3/uL (1.5-6.6); NEUTROPHILS % (AUTO) 82.6 %; PLT - PLATELET COUNT 192 10^3/uL (130-450); RED BLOOD COUNT 5.23 10^6/uL (4.70-6.10); RED CELL DISTRIBUTION WIDTH 12.7 % (12.0-15.0); WHITE BLOOD COUNT 10.5 x10^3/uL (4.8-10.8)
[2021-11-05 19:26] LABS: ALBUMIN 4.3 g/dL (3.2-5.5); ALBUMIN/GLOBULIN RATIO 1.5 (1.0-2.2); BILIRUBIN,TOTAL 0.5 mg/dL (0.2-1.0); CALCIUM 9.4 mg/dL (8.5-10.3); CREATININE 0.9 mg/dL (0.6-1.2); POTASSIUM 3.8 mmol/L (3.5-5.0); TOTAL PROTEIN 7.2 g/dL (6.7-8.2)
== END 2021-11-05 12:10 | disposition home or self-care (01) ==
LOC: LAB.S 12:09
PROVIDERS: ATTEND Psychiatry & Neurology Neurology
DX: Z51.81 Encounter for therapeutic drug level monitoring (principal); R56.9 Unspecified convulsions; Z79.899 Other long term (current) drug therapy
CPT/HCPCS: 36415; 80053; 80183; 81599; 85025

== ENCOUNTER 2023-03-18 08:39 | Outpatient (CLI) | payer OTHER ==
[2023-03-18 09:47] LABS: BASOPHILS % (AUTO) 0.3 %; EOSINOPHILS % (AUTO) 1.4 %; HCT - HEMATOCRIT 44.6 % (42.0-52.0); HGB - HEMOGLOBIN 15.3 g/dL (14.0-18.0); LYMPHOCYTES # (AUTO) 0.7 10^3/uL (1.5-3.5); LYMPHOCYTES % (AUTO) 23.5 %; MEAN CORPUSCULAR HEMOGLOBIN 30.8 pg (27.0-31.0); MEAN CORPUSCULAR HGB CONC 34.3 g/dL (32.0-36.0); MEAN CORPUSCULAR VOLUME 89.9 fL (80.0-94.0); MEAN PLATELET VOLUME 9.8 fL (7.4-11.4); MONOCYTES # (AUTO) 0.4 10^3/uL (0.0-1.0); MONOCYTES % (AUTO) 11.9 %; NEUTROPHILS # (AUTO) 1.9 10^3/uL (1.5-6.6); NEUTROPHILS % (AUTO) 62.9 %; PLT - PLATELET COUNT 186 10^3/uL (130-450); RED BLOOD COUNT 4.96 10^6/uL (4.70-6.10); RED CELL DISTRIBUTION WIDTH 12.8 % (12.0-15.0); WHITE BLOOD COUNT 2.9 x10^3/uL (4.8-10.8)
[2023-03-18 09:50] LABS: SLIDE REVIEW? Indicated
[2023-03-18 09:57] LABS: RBC MORPHOLOGY (MULTIPLE) 2+ ANISOCYTOSIS (NORMAL)
[2023-03-18 10:08] LABS: ALBUMIN 3.7 g/dL (3.2-5.5); ALBUMIN/GLOBULIN RATIO 0.8 (1.0-2.2); BILIRUBIN,TOTAL 0.6 mg/dL (0.2-1.0); CALCIUM 8.9 mg/dL (8.5-10.3); CREATININE 0.9 mg/dL (0.6-1.2); POTASSIUM 3.8 mmol/L (3.5-5.0); TOTAL PROTEIN 8.3 g/dL (6.7-8.2)
--- NOTE | 2023-03-18 23:03 | Ultrasound Report ---
PROCEDURE: Abdomen Limited INDICATIONS: CHOLELITHIASIS TECHNIQUE: Real-time focused scanning was performed of the right upper quadrant, with image documentation. COMPARISONS: CT abdomen pelvis 10/12/2021. FINDINGS: Liver: Liver is normal in size and homogeneous in echotexture. Gallbladder: Multiple echogenic shadowing gallstones are demonstrated in the gallbladder, the largest measuring up to 1.9 cm. No gallbladder wall thickening or pericholecystic fluid. Biliary ducts: No intra or extra hepatic biliary ductal dilatation. Pancreas: Visualized portions of the pancreas appear sonographically normal. Right kidney: Right kidney measures 9.5 cm long. No hydronephrosis. IMPRESSION: 1. Cholelithiasis without evidence of cholecystitis. Reviewed by: Luiz Farley MD on 03/18/2023 11:02 PM PDT Approved by: Luiz Farley MD on 03/18/2023 11:02 PM PDT Station ID: [id number]
== END 2023-03-18 08:40 | disposition home or self-care (01) ==
LOC: DI 08:39
PROVIDERS: ATTEND Surgery
DX: K80.20 Calculus of gallbladder without cholecystitis without obstruction (principal); Z13.228 Encounter for screening for other metabolic disorders; R68.89 Other general symptoms and signs
CPT/HCPCS: 36415; 80053; 85025

== ENCOUNTER 2023-03-19 07:19 | Day surgery (SDC) | payer OTHER ==
[2023-03-19] MEDS ORDERED: LACTATED RINGERS 1,000 ML IV ONE (07:21)
[2023-03-19] MEDS ORDERED: PROPOFOL 500 MG/50 ML 500 MG/50 ML VIAL ONE (07:35)
--- NOTE | 2023-03-19 07:35 | ANESTHESIA ---
Pre-Anesthesia VS, & Labs - Diagnosis screening, abdominal pain - Procedure EGD, Colonoscopy Vital Signs: Temp Pulse Resp BP Pulse Ox O2 Flow Rate 36.2 C L 96 16 122/82 H 99 03/19/23 07:28 03/19/23 07:28 03/19/23 07:28 03/19/23 07:28 03/19/23 07:28 Height: 6 ft 1 in Weight (kg): 77 kg Body Mass Index: 22.4 BMI Classification: Normal - NPO Other (prep as directed) Home Medications and Allergies Home Medications: Ambulatory Orders Lutein 20 mg PO DAILY 03/19/23 Promethazine Supp [Phenergan Supp] 25 mg [place] PRN PRN 03/19/23 Turmeric/Turmeric Root Extract [Turmeric] 500 mg PO DAILY 03/19/23 Cholecalciferol (Vitamin D3) [Vitamin D3] 5,000 units PO DAILY 04/03/14 OXcarbazepine [Trileptal] 300 mg PO BID 04/03/14 Ondansetron [Zofran Odt] 4 - 8 mg PO .BID-QID 04/03/14 Tizanidine HCl [Zanaflex] 4 mg PO DAILY 04/03/14 Docusate Sodium 100Mg Capsule [Colace 100Mg Capsule] 200 mg PO DAILY PRN 09/15/15 Naltrexone HCl 4.5 mg PO DAILY 09/15/15 Senna [Senokot] 8.6 mg PO DAILY 09/15/15 dronabinoL [Marinol] 5 mg PO TID 09/15/15 Cyanocobalamin (Vitamin B-12) [Vitamin B-12] 1,000 mcg PO DAILY 12/24/16 Folic Acid 0.8 mg PO DAILY 12/24/16 Phosphatidyl Serine [Phosphatidylserine] 100 mg PO DAILY 12/24/16 Saccharomyces Boulardii [Florastor] 250 mg PO DAILY 12/24/16 Tizanidine HCl [Zanaflex] 4 mg PO DAILY@1700 12/24/16 Tizanidine HCl [Zanaflex] 8 mg PO QPM 12/24/16 polyethylene glycoL 3350 [Miralax] 17 gm PO .Q1-2DAYS 12/24/16 Galcanezumab-Gnlm [Emgality] 120 mg SQ 08/03/21 Oxycodone HCl 10 mg ORAL BID PRN 08/03/21 Promethazine HCl [Promethegan] 25 mg [place] DAILY PRN 08/03/21 Sumatriptan Inj [Imitrex Inj] 6 mg SUBQ ONCE 08/03/21 diazePAM [Valium] 5 - 10 mg PO QID PRN 08/03/21 Allergies/Adverse Reactions: Allergies Allergy/AdvReac Type Severity Reaction Status Date / Time ampicillin AdvReac Unknown Verified 10/12/21 17:58 ciprofloxacin [From Cipro] AdvReac Unknown Verified 10/12/21 17:58 Anes History & Medical History - Anesthetic History Anesthesia Complications: reports: No previous complications - Medical History Cardiovascular: reports: None Pulmonary: reports: None Gastrointestinal: reports: GERD, Other Urinary: reports: Incontinence 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) Musculoskeletal: reports: Other Endocrine/Autoimmune: reports: None Blood Disorders: reports: None Skin: reports: None Smoking Status: Never smoker - Surgical History Orthopedic: reports: Arthroscopic surgery Exam General: Alert, Oriented x3 Dental: WNL Mouth Opening: Greater than 4 Fingerbreadths Neck Mobility: Normal Mallampati classification: II Thyromental Distance: greater than 6 cm Respiratory: Lungs clear Cardiovascular: Regular rate Plan Anesthesia Type: Total IV Consent for Procedure(s) Verified and Reviewed: Yes Code Status: Attempt Resuscitation ASA classification: 3-Severe systemic disease Is this case an emergency?: No
[2023-03-19] MEDS ORDERED: LIDOCAINE-MPF 2% 5 ML VIAL ONE (07:36)
[2023-03-19] MEDS ORDERED: PROPOFOL 200 MG/20 ML VIAL IVP ONE (09:07)
[2023-03-19] MEDS ORDERED: LACTATED RINGERS 200 ML IV ONE (09:19)
[2023-03-19] MEDS ORDERED: ONDANSETRON 4 MG/2 ML VIAL ONE (09:34)
--- NOTE | 2023-03-19 10:12 | ANESTHESIA POST OP EVALUATION ---
Anesthesia Post Eval - Post Anesthesia Eval Vitals: Last Vital Signs Temp 36.5 C 03/19/23 09:32 Pulse 84 03/19/23 09:32 Resp 16 03/19/23 09:32 BP 102/65 03/19/23 09:32 Pulse Ox 98 03/19/23 09:32 O2 Flow Rate CV Function Including HR & BP: Stable Pain Control: Satisfactory Nausea & Vomiting: Negative Mental Status: Baseline Respiratory Status: Airway Patent Hydration Status: Satisfactory Anesthesia Complications: None
[2023-03-19 10:21] VITALS: BP 112/73
== END 2023-03-19 07:20 | disposition home or self-care (01) ==
LOC: SDS 07:19
PROVIDERS: ATTEND Surgery
PROC: 0DJ08ZZ Inspection of Upper Intestinal Tract, Via Natural or Artificial Opening Endoscopic (ICD-10-PCS; principal; 2023-03-19 08:30)
PROC: 0DBN8ZZ Excision of Sigmoid Colon, Via Natural or Artificial Opening Endoscopic (ICD-10-PCS; 2023-03-19 08:30)
DX: R10.13 Epigastric pain (principal); K63.5 Polyp of colon; R63.4 Abnormal weight loss; Z68.22 Body mass index [BMI] 22.0-22.9, adult; K21.9 Gastro-esophageal reflux disease without esophagitis; G61.81 Chronic inflammatory demyelinating polyneuritis; K64.2 Third degree hemorrhoids
CPT/HCPCS: 43235; 45385; J7120

== ENCOUNTER 2023-03-22 06:25 | Day surgery (SDC) | payer OTHER ==
[~2023-03-22 06:25] MED LIST changes: -IOPAMIDOL-300 100 ML VIAL ONE; +ceFAZolin 2 GM VIAL ONE
[2023-03-22] MEDS ORDERED: LACTATED RINGERS 1,000 ML IV ONE ×2 (06:28)
[2023-03-22] MEDS ORDERED: BUPIVACAINE 0.25% PF 30 ML VIAL ONE (07:17)
--- NOTE | 2023-03-22 07:20 | ANESTHESIA ---
Pre-Anesthesia VS, & Labs - Diagnosis chronic cholecystitis - Procedure lap cholecystitis Vital Signs: Temp Pulse Resp BP Pulse Ox O2 Flow Rate 36.2 C L 113 H 18 129/80 99 03/22/23 06:45 03/22/23 06:45 03/22/23 06:45 03/22/23 06:45 03/22/23 06:45 Height: 6 ft 1 in Weight (kg): 75 kg Body Mass Index: 21.8 BMI Classification: Normal - NPO >8 hours Home Medications and Allergies Cholecalciferol (Vitamin D3) [Vitamin D3] 5,000 units PO DAILY 04/03/14 OXcarbazepine [Trileptal] 300 mg PO BID 04/03/14 Ondansetron [Zofran Odt] 4 - 8 mg PO .BID-QID 04/03/14 Naltrexone HCl 4.5 mg PO DAILY 09/15/15 dronabinoL [Marinol] 5 mg PO TID 09/15/15 Cyanocobalamin (Vitamin B-12) [Vitamin B-12] 1,000 mcg PO DAILY 12/24/16 Folic Acid 0.8 mg PO DAILY 12/24/16 Tizanidine HCl [Zanaflex] 4 mg PO DAILY@1700 12/24/16 Tizanidine HCl [Zanaflex] 8 mg PO QPM 12/24/16 Oxycodone HCl 10 mg ORAL BID PRN 08/03/21 Promethazine HCl [Promethegan] 25 mg [place] DAILY PRN 08/03/21 Sumatriptan Inj [Imitrex Inj] 6 mg SUBQ ONCE PRN 08/03/21 diazePAM [Valium] 5 - 10 mg PO QID PRN 08/03/21 Lutein 20 mg PO DAILY 03/19/23 Turmeric/Turmeric Root Extract [Turmeric] 500 mg PO DAILY 03/19/23 Allergies/Adverse Reactions: Allergies Allergy/AdvReac Type Severity Reaction Status Date / Time ampicillin AdvReac Unknown Verified 10/12/21 17:58 ciprofloxacin [From Cipro] AdvReac Unknown Verified 10/12/21 17:58 Anes History & Medical History - Anesthetic History Anesthesia Complications: reports: No previous complications Family history of Anesthesia Complications: Denies Family history of Malignant Hyperthermia: Denies - Medical History Cardiovascular: reports: None Pulmonary: reports: None Gastrointestinal: reports: GERD, Other Urinary: reports: Incontinence 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) Musculoskeletal: reports: Other Endocrine/Autoimmune: reports: None Blood Disorders: reports: None Skin: reports: None Smoking Status: Never smoker - Surgical History General: reports: Other Orthopedic: reports: Arthroscopic surgery Exam General: Alert, Oriented x3, Cooperative Dental: WNL Mouth Openin Fingerbreadth Neck Mobility: Normal Mallampati classification: II Thyromental Distance: 4-6 cm Respiratory: Lungs clear Cardiovascular: Regular rate Plan Anesthesia Type: General Consent for Procedure(s) Verified and Reviewed: Yes Code Status: Attempt Resuscitation ASA classification: 3-Severe systemic disease Is this case an emergency?: No
[2023-03-22] MEDS ORDERED: MORPHINE 2 MG/ML CARPUJECT IVP PRN (07:29)
[2023-03-22] MEDS ORDERED: ATROPINE ABBOJECT 1 MG/10 ML SYRINGE IVP PRN (07:29)
[2023-03-22] MEDS ORDERED: HYDROmorphone 0.5 MG/0.5 ML SYRINGE IVP PRN (07:29)
[2023-03-22] MEDS ORDERED: NALOXONE 0.4 MG/ML VIAL IVP PRN (07:29)
[2023-03-22] MEDS ORDERED: ePHEDrine 50 MG/ML VIAL IVP PRN (07:29)
[2023-03-22] MEDS ORDERED: ONDANSETRON 4 MG/2 ML VIAL IVP PRN (07:29)
[2023-03-22] MEDS ORDERED: METOCLOPRAMIDE 10 MG/2 ML VIAL IVP PRN (07:29)
[2023-03-22] MEDS ORDERED: fentaNYL 100 MCG/2 ML VIAL IVP PRN (07:29)
[2023-03-22] MEDS ORDERED: SIMETHICONE 40 MG/0.6 ML 30 ML BOTTLE PO PRN ×2 (07:44→09:22)
[2023-03-22] MEDS ORDERED: KETAMINE 200 MG/20 ML VIAL ONE (07:46)
[2023-03-22] MEDS ORDERED: fentaNYL 100 MCG/2 ML VIAL ONE (07:47)
[2023-03-22] MEDS ORDERED: MIDAZOLAM 2 MG/2 ML VIAL ONE (07:47)
[2023-03-22] MEDS ORDERED: PROPOFOL 200 MG/20 ML VIAL IVP ONE ×2 (07:49→09:25)
[2023-03-22] MEDS ORDERED: LIDOCAINE-PF 2% 10 ML AMP SUBQ ONE (07:49)
[2023-03-22] MEDS ORDERED: ROCURONIUM 50 MG/5 ML VIAL ONE ×2 (07:51→08:55)
[2023-03-22] MEDS ORDERED: ONDANSETRON 4 MG/2 ML VIAL ONE (07:51)
[2023-03-22] MEDS ORDERED: KETOROLAC 30 MG/ML VIAL ONE (07:51)
[2023-03-22] MEDS ORDERED: LACTATED RINGERS 1,000 ML IV SCH (08:00)
[2023-03-22] MEDS ORDERED: BUPIVACAINE 0.25% PF 30 ML VIAL SUBQ ONE (08:15)
[2023-03-22] MEDS ORDERED: SUGAMMADEX 200 MG/2 ML VIAL IVP ONE (09:19)
[2023-03-22] MEDS ORDERED: ACETAMINOPHEN 1,000 MG/100 ML 1,000 MG/100 ML BAG IV ONE (09:21)
[2023-03-22] MEDS ORDERED: LACTATED RINGERS 700 ML IV ONE (09:39)
[2023-03-22] MEDS: fentaNYL 100 MCG/2 ML VIAL ONE ×2 (09:58→10:11)
--- NOTE | 2023-03-22 10:11 | OPERATIVE REPORT ---
Operative Report - General Procedure Date: 03/22/23 Planned Procedure: Laparoscopic cholecystectomy, possible open cholecystectomy, possible intraoperative cholangiogram, possible common bile duct exploration Pre-Op Diagnosis: Symptomatic cholelithiasis Procedure Performed: Laparoscopic cholecystectomy, repair recurrent umbilical hernia Post Op Diagnosis: Symptomatic cholelithiasis and small recurrent umbilical sirena ia not noted o - Procedure Note Primary Surgeon: Bhavesh Trujillo MD Anesthesia Provider: Kala dAams CRNA Anesthesia Technique: General ET tube IV Fluids (mL): 1,300 Estimated Blood Loss (mL): 20 Drain/Tube Type: Other (None.) Indications: As above. Findings: A densely adherent "S" shaped gallbladder with adhesions to the omentum as well as itself. Complications: None. - Other Other Information/Narrative: After verbal and written informed consent was obtained detailing the operation, the alternatives to the operation including no operation, risks of infection, bleeding requiring transfusion with its risks, nerve injury, and and after I met with the patient confirming the surgery, the patient was brought to the operative suite and placed supine on the operating table. Great care was taken to avoid pressure points to prevent pressure necrosis or nerve injury. Monitoring devices were applied along with TEDs and pneumatic compressive stockings (to prevent DVT). The patient received preoperative antibiotics for surgical prophylaxis. Kala Adams CRNA sedated and anesthetized the patient for the entire procedure. The patient was prepped and draped in usual sterile manner. A "time in" then confirmed that the patient was identified with 3 identifiers (name, date, and medical record number), the history and physical was in the chart, the signed consent confirming the procedure was in the chart, the patient was in the correct position, the aforementioned prophylactic measures were in place were given, we had the correct personnel and equipment to complete the procedure and that anesthesia, and the surgical team was given an opportunity to express any concerns. With the agreement of everyone in the room, we proceeded with the operation. The initial incision was just supraumbilical and dissection to the linea alba was completed using blunt dissection. The sutures from his previous umbilical herniorrhaphy were encountered and I believe these were Maxon sutures. Between the sutures there was a small recurrent umbilical hernia that was not appreciated prior to the operation. I cut 1 of those sutures and used this opening to gain entry into the abdomen without incident. In this location, a 12 mm blunt tipped, balloon tipped port was placed and the balloon was inflated to keep the port in position. The abdominal cavity was insufflated with carbon dioxide to a steady-state pressure of 15 mmHg initially but because his blood pressure was a little bit labile it was decreased to 12 mmHg. 3 additional 5 mm ports were placed in standard locations for laparoscopic cholecystectomy (subxiphoid and 2 right subcostal) under direct vision of the 30 degree laparoscope and without incident. The patient was then placed in reverse Trendelenburg position and was rotated slightly to their left. The gallbladder fundus was grasped with an atraumatic grasper. Multiple adhesions had to be taken down by blunt and sharp dissection along with electrocautery. The gallbladder was densely adherent to the omentum which was taken down using traction and countertraction but it was similarly adherent to itself. There was a very definite "S" shaped to the gallbladder and this was photographed. The gallbladder was quite long. Eventually, I identified the infundibulum and this was then grasped and retracted superiorly and laterally. Dissection was then begun at the angle of [place]. The cystic duct and (slightly medially and posteriorly), cystic artery were clearly identified. The critical view was obtained and a photograph taken. 2 clips proximally and one clip distally were used to control both the cystic duct and cystic artery. The clips were carefully placed to avoid occluding the juncture with the common bile duct. Both the cystic duct and then the cystic artery were then transected with laparoscopic paul. The gallbladder was then removed from its fossa in a retrograde manner using electrocautery. With the 30 degree 5 mm scope in the subxiphoid position, the gallbladder was placed in an Endo Catch bag to be extracted through the 12 mm port site. I irrigated the right upper quadrant with 2 liters of warm sterile saline and the area was aspirated dry. I inspected the gallbladder fossa and there was no bleeding or bile leak. Clips on the cystic duct and cystic artery appeared to be secure. I briefly visually explored the abdomen. Photographs were taken throughout the case documenting the surgical findings and the surgery. There was no other evidence of overt pathology. I injected the port sites at the peritoneal, fascial, and skin levels under direct vision with 0.25% Marcaine. All ports and the Endo Catch containing the gallbladder were removed. Following gallbladder removal, the remaining carbon dioxide was expelled from the abdomen. The fascia the umbilicus was approximated using 2 [id number] 0 Vicryl sutures. This repaired the small umbilical hernia. The skin at each port site was approximated using a subcuticular 4-0 Monocryl. The skin was prepped with benzoin and Steri-Strips were applied. At this point a "timeout" was performed that confirmed that all counts were correct, the procedure that was performed, the blood loss, the IV fluids administered, the patient's condition and any concerns of the operating team had. Dressings were then applied. Having tolerated the procedure well, the patient was extubated and taken to recovery room in good and stable condition. The plan is for outpatient discharge when the patient is adequately recovered. CPT laparoscopic cholecystectomy 31003 CPT recurrent umbilical hernia less than 3 cm [id number] This document was created in part using voice recognition technology. Because of the inherent limitations of the system, occasional same sounding word substitutions and grammatical errors do occur and persist despite proofreading. Please read this document for context.
[2023-03-22] MEDS ORDERED: HYDROmorphone 1 MG/ML CARPUJECT IVP PRN (10:55)
[2023-03-22] MEDS ORDERED: HYDROmorphone 0.5 MG/0.5 ML SYRINGE ONE (11:00)
[2023-03-22] MEDS ORDERED: HYDROmorphone 0.5 MG/0.5 ML SYRINGE IVP SCH (11:00)
[2023-03-22 13:35] VITALS: BP 112/70
--- NOTE | 2023-03-22 15:56 | ANESTHESIA POST OP EVALUATION ---
Anesthesia Post Eval - Post Anesthesia Eval Vitals: Last Vital Signs Temp 36.1 C L 03/22/23 13:08 Pulse 82 03/22/23 13:08 Resp 16 03/22/23 13:08 BP 112/70 03/22/23 13:08 Pulse Ox 100 03/22/23 13:08 O2 Flow Rate CV Function Including HR & BP: Stable Pain Control: Satisfactory Nausea & Vomiting: Negative Mental Status: Baseline Respiratory Status: Airway Patent Hydration Status: Satisfactory Anesthesia Complications: None
== END 2023-03-22 06:26 | disposition home or self-care (01) ==
LOC: SDS 06:25
PROVIDERS: ATTEND Surgery
PROC: 0FT44ZZ Resection of Gallbladder, Percutaneous Endoscopic Approach (ICD-10-PCS; principal; 2023-03-22 07:30)
DX: K80.20 Calculus of gallbladder without cholecystitis without obstruction (principal); K82.8 Other specified diseases of gallbladder; K42.9 Umbilical hernia without obstruction or gangrene
CPT/HCPCS: 47562; J0131; J1170; J3490; J7120

== ENCOUNTER 2023-05-30 11:50 | Outpatient (CLI) | payer OTHER ==
[2023-05-30 15:31] LABS: ALBUMIN 4.3 g/dL (3.2-5.5); ALBUMIN/GLOBULIN RATIO 1.5 (1.0-2.2); BILIRUBIN,TOTAL 0.6 mg/dL (0.2-1.0); CALCIUM 9.8 mg/dL (8.5-10.3); POTASSIUM 4.2 mmol/L (3.5-4.5); TOTAL PROTEIN 7.2 g/dL (6.4-8.9)
== END 2023-05-30 11:51 | disposition home or self-care (01) ==
LOC: LAB.S 11:50
PROVIDERS: ATTEND Internal Medicine
DX: R94.5 Abnormal results of liver function studies (principal)
CPT/HCPCS: 36415; 80053